=== PATIENT | male | born 1950 | race Hispanic/Latino ===

== ENCOUNTER 2020-01-19 10:23 | Emergency (ER) | payer SELFPAY ==
[~2020-01-19] VITALS: Ht 172.7 cm; Wt 81.6 kg
[2020-01-19 11:25] LABS: BASOPHILS # (AUTO) 0.1 (0.0-0.1); BASOPHILS % 0.8 % (0.0-1.0); EOSINOPHILS # (AUTO) 0.2 (0.0-0.4); EOSINOPHILS % 1.9 % (0.0-6.0); HEMATOCRIT 38.9 % (38.2-49.6); HEMOGLOBIN 13.4 g/dL (14.0-18.0); LYMPHOCYTES # (AUTO) 2.5 (1.0-3.2); LYMPHOCYTES % 31.8 % (18.0-39.1); MEAN CORPUSCULAR HEMOGLOBIN 32.5 pg (28-32); MEAN CORPUSCULAR HGB CONC 34.4 g/dL (31-35); MEAN CORPUSCULAR VOLUME 94.4 fL (81-99); MONOCYTES # (AUTO) 0.6 (0.2-0.8); NEUTROPHILS # (AUTO) 4.5 (2.1-6.9); NEUTROPHILS % 57.4 % (38.7-80.0); PLATELET COUNT 239 x10e3/uL (140-360); RED BLOOD COUNT 4.12 x10e6/uL (4.3-5.7); RED CELL DISTRIBUTION WIDTH 12.9 % (11.7-14.4)
[2020-01-19 11:43] LABS: ALANINE AMINOTRANSFERASE 14 IU/L (0-55); ALBUMIN/GLOBULIN RATIO 1.1 (0.8-2.0); ALKALINE PHOSPHATASE 112 IU/L (40-150); BLOOD UREA NITROGEN 20 mg/dL (7-26); BUN/CREATININE RATIO 19 (6-25); CALCIUM 9.3 mg/dL (8.4-10.2); CARBON DIOXIDE 22 mmol/L (22-29); CHLORIDE 108 mmol/L (98-107); CREATININE, SERUM 1.08 mg/dL (0.72-1.25); EST GLOMERULAR FILTRATION RATE > 60 ML/MIN (60-); GLUCOSE 117 mg/dL (74-118); SODIUM 140 mmol/L (136-145)
--- NOTE | 2020-01-19 12:10 | Diagnostic Imaging Report ---
Exam: Testicular ultrasound. Clinical History: Testicular swelling and pain Findings: Sonographic evaluation of the testicles. Both testes are normal in echogenicity and size without intratesticular mass. Normal symmetric bilateral blood flow without evidence of testicular torsion. Right: The right testicle measures 5.4 x 2.1 x 2.9 cm and appears unremarkable. The right epididymis measures 1.1 x 0.5 x 0.7 cm and appears unremarkable. Large right hydrocele. No varicocele. Left: The left testicle measures 5.0 x 2.3 x 2.6 cm and appears unremarkable. The left epididymis measures 1.1 x 0.9 x 0.9 cm and appears unremarkable. Trace left hydrocele. No varicocele. Impression: No testicular torsion or intratesticular mass. Large right hydrocele. Trace left hydrocele. Signed by: Ricky Avila MD on 01/19/2020 12:07 PM
--- NOTE | 2020-01-19 12:24 | Diagnostic Imaging Report ---
EXAM: CT Abdomen and Pelvis WITH intravenous contrast INDICATION: Testicular pain COMPARISON: Testicular ultrasound of earlier the same day TECHNIQUE: Abdomen and pelvis were scanned utilizing a multidetector helical scanner from the lung base to the pubic symphysis after administration of IV contrast. Coronal and sagittal reformations were obtained. Routine protocol was performed. Scan was performed during portal venous phase. IV CONTRAST: 100mL of Isovue 370 ORAL CONTRAST: Water RADIATION DOSE: Total DLP: 377 mGy*cm Dose modulation, iterative reconstruction, and/or weight based adjustment of the mA/kV was utilized to reduce the radiation dose to as low as reasonably achievable. FINDINGS: LOWER THORAX: Normal. HEPATOBILIARY: Diffuse hepatic steatosis. No focal liver lesion. No biliary ductal dilation. Unremarkable gallbladder. SPLEEN: No splenomegaly. PANCREAS: No focal masses or ductal dilatation. ADRENALS: No adrenal nodules. KIDNEYS/URETERS: No hydronephrosis, stones, or solid mass lesions. PELVIC ORGANS/BLADDER: Mild prostatomegaly with coarse internal calcifications. Unremarkable bladder. Large right hydrocele. PERITONEUM / RETROPERITONEUM: No free air or fluid. LYMPH NODES: No lymphadenopathy. VESSELS: Scattered atherosclerotic calcifications of the nonaneurysmal abdominal aorta and major branches. GI TRACT: No distention or wall thickening. BONES AND SOFT TISSUES: Unremarkable. IMPRESSION: Large right hydrocele, more completely evaluated on the testicular ultrasound of earlier the same day. Diffuse hepatic steatosis. Signed by: Ricky Avila MD on 01/19/2020 12:21 PM
[2020-01-19] MEDS ORDERED: SODIUM CHLORIDE 0.9% 50ML 50 ML ONE (12:39)
[2020-01-19] MEDS ORDERED: IOPAMIDOL 370 MG/ML 200 ML INFUS..BTL INJ ONE (12:39)
[2020-01-19 13:02] LABS: CLARITY,URINE CLEAR (CLEAR); COLOR,URINE YELLOW (YELLOW)
--- NOTE | 2020-01-19 13:02 | Emergency Department Note ---
History of Present Illnes History of Present Illness Chief Complaint: Genitourinary History of Present Illness This is a 69 year old male arrives to the ED with complaints of scrotal pain and swelling. Patient states he is scheduled for a hydrocele repair and evacuation on January 24 but he could not tolerate the pain which prompted him to come to the emergency department today.. Historian: Patient Arrival Mode: Car Onset (how long ago): day(s) Severity: mild Onset quality: gradual Duration (how long): day(s) Timing of current episode: intermittent Progression: waxing and waning Chronicity: chronic Relieving factors: none Past Medical/Family History Physician Review I have reviewed the patient's past medical and family history. Any updates have been documented here. Past Medical History Recent Fever: No Clinical Suspicion of Infectio: No New/Unexplained Change in Ment: No Past Medical History: Hypertension, Diabetes, Hyperlipedemia Past Surgical History: None Social History Smoking Cessation: Never Smoker Counseling Performed: No Alcohol Use: None Any Illegal Drug Use: No Other Any Pre-Existing Lines (PICC,: No Review of Systems Review of Systems Constitutional: Reports no symptoms EENTM: Reports no symptoms Cardiovascular: Reports no symptoms Respiratory: Reports no symptoms Gastrointestinal: Reports no symptoms Genitourinary: Reports as per HPI Musculoskeletal: Reports no symptoms Integumentary: Reports no symptoms Neurological: Reports no symptoms Psychological: Reports no symptoms Endocrine: Reports no symptoms Hematological/Lymphatic: Reports no symptoms Physical Exam Related Data Allergies: Coded Allergies: No Known Allergies (Unverified , 01/19/20) Triage Vital Signs Vital Signs Date Time Temp Pulse Resp B/P (MAP) Pulse Ox O2 Delivery O2 Flow Rate FiO2 01/19/20 10:54 98.7 49 20 121/81 100 Room Air Vital signs reviewed: Yes Physical Exam CONSTITUTIONAL Constitutional: Present well-developed, Present well-nourished HENT HENT: Present normocephalic, Present atraumatic, Present oropharynx clear/moist, Present nose normal HENT L/R: Present left ext ear normal, Present right ext ear normal EYES Eyes: Reports PERRL, Reports conjunctivae normal NECK Neck: Present ROM normal PULMONARY Pulmonary: Present effort normal, Present breath sounds normal CARDIOVASCULAR Cardiovascular: Present regular rhythm, Present heart sounds normal, Present capillary refill normal, Present normal rate GASTROINTESTINAL Abdominal: Present soft, Present nontender, Present bowel sounds normal GENITOURINARY Genitourinary: Present other (marked scrotal swelling) SKIN Skin: Present warm, Present dry MUSCULOSKELETAL Musculoskeletal: Present ROM normal NEUROLOGICAL Neurological: Present alert, Present oriented x 3, Present no gross motor or sensory deficits PSYCHOLOGICAL Psychological: Present mood/affect normal, Present judgement normal Results Laboratory Result Diagram: 01/19/20 1116 01/19/20 1116 Laboratory Laboratory Tests Test 01/19/20 12:00 01/19/20 11:16 White Blood Count 7.89 x10e3/uL (4.8-10.8) Red Blood Count 4.12 x10e6/uL (4.3-5.7) Hemoglobin 13.4 g/dL (14.0-18.0) Hematocrit 38.9 % (38.2-49.6) Mean Corpuscular Volume 94.4 fL (81-99) Mean Corpuscular Hemoglobin 32.5 pg (28-32) Mean Corpuscular Hemoglobin Concent 34.4 g/dL (31-35) Red Cell Distribution Width 12.9 % (11.7-14.4) Platelet Count 239 x10e3/uL (140-360) Neutrophils (%) (Auto) 57.4 % (38.7-80.0) Lymphocytes (%) (Auto) 31.8 % (18.0-39.1) Monocytes (%) (Auto) 8.0 % (4.4-11.3) Eosinophils (%) (Auto) 1.9 % (0.0-6.0) Basophils (%) (Auto) 0.8 % (0.0-1.0) Neutrophils # (Auto) 4.5 (2.1-6.9) Lymphocytes # (Auto) 2.5 (1.0-3.2) Monocytes # (Auto) 0.6 (0.2-0.8) Eosinophils # (Auto) 0.2 (0.0-0.4) Basophils # (Auto) 0.1 (0.0-0.1) Absolute Immature Granulocyte (auto 0.01 x10e3/uL (0-0.1) Sodium Level 140 mmol/L (136-145) Potassium Level 4.0 mmol/L (3.5-5.1) Chloride Level 108 mmol/L (98-107) Carbon Dioxide Level 22 mmol/L (22-29) Anion Gap 14.0 mmol/L (8-16) Blood Urea Nitrogen 20 mg/dL (7-26) Creatinine 1.08 mg/dL (0.72-1.25) Estimat Glomerular Filtration Rate > 60 ML/MIN (60-) BUN/Creatinine Ratio 19 (6-25) Glucose Level 117 mg/dL (74-118) Calcium Level 9.3 mg/dL (8.4-10.2) Total Bilirubin 0.4 mg/dL (0.2-1.2) Aspartate Amino Transf (AST/SGOT) 16 IU/L (5-34) Alanine Aminotransferase (ALT/SGPT) 14 IU/L (0-55) Alkaline Phosphatase 112 IU/L (40-150) Total Protein 7.6 g/dL (6.5-8.1) Albumin 4.0 g/dL (3.5-5.0) Globulin 3.6 g/dL (2.3-3.5) Albumin/Globulin Ratio 1.1 (0.8-2.0) Lab results reviewed: Yes Imaging Imaging results reviewed: Yes Impressions IMPRESSION: Large right hydrocele, more completely evaluated on the testicular ultrasound of earlier the same day. Diffuse hepatic steatosis. Signed by: Ricky Avila MD on 01/19/2020 12:21 PM Assessment & Plan Medical Decision Making MDM 69-year-old male arrives to the ED with complaints of scrotal swelling and pain. Patient has a scheduled hydrocele evacuation on January 24. Patient's pain was well-controlled the ED. No concerns of torsion or other acute emergency at this time. Spoke to Dr. Medellin at length who believes patient can be discharged home at this time and follow up with his appointment on January 24. Assessment & Plan Final Impression: (1) Hydrocele Depart Disposition: HOME, SELF-CARE Last Vital Signs Date Time Temp Pulse Resp B/P (MAP) Pulse Ox O2 Delivery O2 Flow Rate FiO2 01/19/20 10:54 98.7 49 20 121/81 100 Room Air Home Meds Active Scripts Tramadol Hcl (ULTRAM) 50 Mg Tablet, 50 MG PO Q6HR PRN for Mild Pain (1-3) or Fever>100.8, #14 TAB Prov:CYNTHIA CANADA, 01/19/20 Medications in the ED Sodium Chloride 50 ml @ ud STK-MED ONCE .ROUTE ; Start 01/19/20 at 12:39; Stop 01/19/20 at 12:33; Status DC Iopamidol 74,000 mg STK-MED ONCE INJ ; Start 01/19/20 at 12:39; Stop 01/19/20 at 12:33; Status DC CYNTHIA CANADA DO Jan 19, 2020 13:03
[2020-01-19 13:03] LABS: LEUKOCYTE ESTERASE ,URINE NEGATIVE (NEGATIVE); NITRITE,URINE NEGATIVE (NEGATIVE); PROTEIN,URINE DIPSTICK NEGATIVE (NEGATIVE)
[2020-01-19 13:04] LABS: BILIRUBIN,URINE NEGATIVE (NEGATIVE); KETONES,URINE NEGATIVE (NEGATIVE); URINE UROBILINOGEN 0.2 mg/dL (0.2 - 1)
[2020-01-19 13:05] LABS: BACTERIA,URINE RARE /HPF; EPITHELIAL CELLS,URINE FEW /LPF; RBC,URINE 0-5 /HPF (0-5); WBC,URINE (MAN) 0-5 /HPF (0-5)
[2020-01-19] MEDS ORDERED: ULTRAM50 MG PO (13:15)
[2020-01-20] MEDS ORDERED: METFORMIN HCL500 MG PO (14:16)
[2020-01-20] MEDS ORDERED: ATORVASTATIN CA10 MG PO (14:16)
[2020-01-20] MEDS ORDERED: LISINOPRIL5 MG PO (14:16)
== END 2020-01-19 14:00 | disposition home or self-care (01) ==
LOC: ER 10:55
DX: N50.82 Scrotal pain (principal); I10 Essential (primary) hypertension; E11.9 Type 2 diabetes mellitus without complications; E78.5 Hyperlipidemia, unspecified
CPT/HCPCS: 36415; 74177; 76870; 80053; 81001; 85025; 93976; 99284; Q9967

== ENCOUNTER → 2020-01-25 | Day surgery (SDC) | payer MEDICARE, OTHER ==
[~2020-01-25] MED LIST: ATORVASTATIN CA10 MG PO; ATORVASTATIN CA40 MG; BACTRIM DS TAB1 EACH PO; BUPIVACAINE HCL 0.5% INJ 30 ML VIAL INJ ONE; CEFAZOLIN SOD 1 GM/NS 50ML 50 ML IV ONE; DEXAMETHASONE SOD PHOS INJ 4 MG/ML VIAL ONE; DOXYCYCLINE MO100 MG; EPHEDRINE SULFATE INJ 50 MG/ML VIAL ONE; FENTANYL CITRATE/PF 100MCG/2 ML INJ ONE; KETOROLAC TROMETHAMINE 30 MG/ML VIAL ONE; LIDOCAINE HCL 2% LOCAL INJ 5 ML SDV VIAL INJ ONE; LISINOPRIL5 MG PO; METFORMIN HCL500 MG PO; METOCLOPRAMIDE HCL 10 MG/2ML VIAL ONE; MIDAZOLAM HCL 2 MG/2 ML VIAL ONE; ONDANSETRON HCL INJ 2MG/ML 2ML 2 MG/ML VIAL ONE; PROPOFOL IV EMULSION 10 MG/ML 20 ML VIAL ONE; SEVOFLURANE INHAL SOLN 250 ML PEN BTL ONE; SULFAMETHOXAZOLE; TRIAMCINOLONE A15 G3; TRIMETHOPRIM; TYLENOL # 31 EA; ULTRAM50 MG PO
[2020-01-25 09:44] LABS: BASOPHILS # (AUTO) 0.1 (0.0-0.1); BASOPHILS % 0.8 % (0.0-1.0); EOSINOPHILS # (AUTO) 0.2 (0.0-0.4); EOSINOPHILS % 1.6 % (0.0-6.0); HEMATOCRIT 39.2 % (38.2-49.6); HEMOGLOBIN 13.6 g/dL (14.0-18.0); LYMPHOCYTES # (AUTO) 2.6 (1.0-3.2); LYMPHOCYTES % 28.1 % (18.0-39.1); MEAN CORPUSCULAR HEMOGLOBIN 32.8 pg (28-32); MEAN CORPUSCULAR HGB CONC 34.7 g/dL (31-35); MEAN CORPUSCULAR VOLUME 94.5 fL (81-99); MONOCYTES # (AUTO) 0.7 (0.2-0.8); MONOCYTES % 7.1 % (4.4-11.3); NEUTROPHILS # (AUTO) 5.7 (2.1-6.9); PLATELET COUNT 259 x10e3/uL (140-360); RED BLOOD COUNT 4.15 x10e6/uL (4.3-5.7); RED CELL DISTRIBUTION WIDTH 12.9 % (11.7-14.4)
[2020-01-25 10:20] LABS: ANION GAP 15.3 mmol/L (8-16); BLOOD UREA NITROGEN 23 mg/dL (7-26); BUN/CREATININE RATIO 20 (6-25); CARBON DIOXIDE 22 mmol/L (22-29); CHLORIDE 107 mmol/L (98-107); CREATININE, SERUM 1.17 mg/dL (0.72-1.25); EST GLOMERULAR FILTRATION RATE > 60 ML/MIN (60-); GLUCOSE 133 mg/dL (74-118); POTASSIUM 4.3 mmol/L (3.5-5.1); SODIUM 140 mmol/L (136-145)
[2020-01-25 12:15] VITALS: BP 140/77
== END | disposition home or self-care (01) ==
LOC: OR 08:35
PROVIDERS: ATTEND Urology
DX: N43.3 Hydrocele, unspecified (principal); N43.40 Spermatocele of epididymis, unspecified; R81 Glycosuria; R80.9 Proteinuria, unspecified; R35.1 Nocturia; R39.12 Poor urinary stream; N47.6 Balanoposthitis; N45.3 Epididymo-orchitis; I10 Essential (primary) hypertension; E11.9 Type 2 diabetes mellitus without complications; R00.1 Bradycardia, unspecified; Z01.810 Encounter for preprocedural cardiovascular examination; Z01.812 Encounter for preprocedural laboratory examination; Z01.818 Encounter for other preprocedural examination; Z11.59 Encounter for screening for other viral diseases; Z79.84 Long term (current) use of oral hypoglycemic drugs
CPT/HCPCS: 36415; 55040; 71046; 80048; 85025; 88304; 93005; J0690; J1100; J1885; J2001; J2250; J2405; J2704; J2765; J3010; U0002

== ENCOUNTER 2020-02-03 16:07 | Inpatient (IN) | payer MEDICARE, OTHER ==
[~2020-02-03] VITALS: Ht 172.7 cm; Wt 81.6 kg
[~2020-02-03 16:07] MED LIST changes: -ATORVASTATIN CA40 MG; -BACTRIM DS TAB1 EACH PO; -BUPIVACAINE HCL 0.5% INJ 30 ML VIAL INJ ONE; -CEFAZOLIN SOD 1 GM/NS 50ML 50 ML IV ONE; -DEXAMETHASONE SOD PHOS INJ 4 MG/ML VIAL ONE; -DOXYCYCLINE MO100 MG; -EPHEDRINE SULFATE INJ 50 MG/ML VIAL ONE; -FENTANYL CITRATE/PF 100MCG/2 ML INJ ONE; -KETOROLAC TROMETHAMINE 30 MG/ML VIAL ONE; -LIDOCAINE HCL 2% LOCAL INJ 5 ML SDV VIAL INJ ONE; -METOCLOPRAMIDE HCL 10 MG/2ML VIAL ONE; -MIDAZOLAM HCL 2 MG/2 ML VIAL ONE; -ONDANSETRON HCL INJ 2MG/ML 2ML 2 MG/ML VIAL ONE; -PROPOFOL IV EMULSION 10 MG/ML 20 ML VIAL ONE; -SEVOFLURANE INHAL SOLN 250 ML PEN BTL ONE; -SULFAMETHOXAZOLE; -TRIAMCINOLONE A15 G3; -TRIMETHOPRIM; -TYLENOL # 31 EA
--- NOTE | 2020-02-03 16:20 | NUR ---
Pt given cup for ua. md to room for pt jagdish. states need for "gender specific chaparone, I'll get Earl." Earl to room for md khan.
[2020-02-03] MEDS ORDERED: SODIUM CHLORIDE 0.9% 1000ML 1,000 ML IV STA (16:42)
[2020-02-03] MEDS ORDERED: VANCOMYCIN 1GM/NS 250 ML 250 ML IV STA (16:42)
--- NOTE | 2020-02-03 16:43 | NUR ---
Vipul rodríguez MD for evaluation of patient's groin. Patient noted to have a warm and swollen scrotum more significant on the right than the left. Surgical sutures noted to right side of scrotum and old SHERRIE drain site noted with no drain present. It was explained to the patient by the ER MD that there is a concern for infection and the plan to obtain a CT scan was discussed and agreed upon. No open sores or necrosis noted at time of evaluation.
--- NOTE | 2020-02-03 16:50 | NUR ---
states pt will be a septic work up.
--- NOTE | 2020-02-03 17:02 | NUR ---
med not available, talked to [facility] Pharmacist.
[2020-02-03] MEDS: CEFAZOLIN SOD 1 GM/NS 50ML 50 ML IV ONE ×2 (17:03→18:55)
[2020-02-03 17:06] LABS: BASOPHILS # (AUTO) 0.1 (0.0-0.1); BASOPHILS % 0.7 % (0.0-1.0); EOSINOPHILS # (AUTO) 0.2 (0.0-0.4); HEMATOCRIT 38.6 % (38.2-49.6); HEMOGLOBIN 13.2 g/dL (14.0-18.0); LYMPHOCYTES # (AUTO) 2.7 (1.0-3.2); LYMPHOCYTES % 24.4 % (18.0-39.1); MEAN CORPUSCULAR HEMOGLOBIN 32.4 pg (28-32); MEAN CORPUSCULAR HGB CONC 34.2 g/dL (31-35); MEAN CORPUSCULAR VOLUME 94.6 fL (81-99); MONOCYTES # (AUTO) 0.8 (0.2-0.8); MONOCYTES % 7.5 % (4.4-11.3); NEUTROPHILS # (AUTO) 7.3 (2.1-6.9); PLATELET COUNT 312 x10e3/uL (140-360); RED BLOOD COUNT 4.08 x10e6/uL (4.3-5.7); RED CELL DISTRIBUTION WIDTH 12.2 % (11.7-14.4)
--- NOTE | 2020-02-03 17:14 | Emergency Department Note ---
History of Present Illnes History of Present Illness Chief Complaint: Genitourinary History of Present Illness This is a 69 year old male arrives to the ED postop from a hydrocele repair on January 24. Patient has right testicular pain, patient states he had a drain in his catheter back spontaneous to follow off a few days ago. Chief Complaint Comment PATIENT IN FROM HOME WITH COMPLAINTS OF RIGHT TESTICULAR PAIN; STATES HAD A HYDROCELE REPAIR ON 01/25/2020, BUT NEVER FOLLOWED UP. PATIENT RATED PAIN 6/10. PATIENT ALERT AND ORIENTED, RESP EVEN AND NONLABORED, APPEARS IN NO DISTRESS, AMBULATORY WITHOUT ASSISTANCE Historian: Patient Arrival Mode: Car Onset (how long ago): day(s) Severity: mild Duration (how long): day(s) Progression: worsening Chronicity: new Context: Reports recent surgery Exacerbating factors: none Past Medical/Family History Physician Review I have reviewed the patient's past medical and family history. Any updates have been documented here. Past Medical History Recent Fever: No Clinical Suspicion of Infectio: No New/Unexplained Change in Ment: No Past Medical History: Hypertension, Diabetes, Hyperlipedemia Past Surgical History: None Other Surgery: RIGHT TESTICULAR SURGERY Social History Smoking Cessation: Unknown if ever smoked Counseling Performed: No Alcohol Use: None Any Illegal Drug Use: No Other Any Pre-Existing Lines (PICC,: No Review of Systems Review of Systems Constitutional: Reports no symptoms EENTM: Reports no symptoms Cardiovascular: Reports no symptoms Respiratory: Reports no symptoms Gastrointestinal: Reports no symptoms Genitourinary: Reports as per HPI Musculoskeletal: Reports no symptoms Integumentary: Reports no symptoms Neurological: Reports no symptoms Psychological: Reports no symptoms Endocrine: Reports no symptoms Hematological/Lymphatic: Reports no symptoms Physical Exam Related Data Allergies: Coded Allergies: No Known Allergies (Unverified , 01/19/20) Triage Vital Signs Vital Signs Date Time Temp Pulse Resp B/P (MAP) Pulse Ox O2 Delivery O2 Flow Rate FiO2 02/03/20 16:07 98.7 63 16 145/83 100 Room Air Vital signs reviewed: Yes Physical Exam CONSTITUTIONAL Constitutional: Present well-developed, Present well-nourished HENT HENT: Present normocephalic, Present atraumatic, Present oropharynx clear/moist, Present nose normal HENT L/R: Present left ext ear normal, Present right ext ear normal EYES Eyes: Reports PERRL, Reports conjunctivae normal NECK Neck: Present ROM normal PULMONARY Pulmonary: Present effort normal, Present breath sounds normal CARDIOVASCULAR Cardiovascular: Present regular rhythm, Present heart sounds normal, Present capillary refill normal, Present normal rate GASTROINTESTINAL Abdominal: Present soft, Present nontender, Present bowel sounds normal GENITOURINARY Genitourinary: Present other (enlarged right testicle noted, sutures still in place, no drainage from suture site, however, marked swelling and erythema noted over right testicle, diffuse superimposed cellulitis noted over bilateral testicles) SKIN Skin: Present warm, Present dry MUSCULOSKELETAL Musculoskeletal: Present ROM normal NEUROLOGICAL Neurological: Present alert, Present oriented x 3, Present no gross motor or sensory deficits PSYCHOLOGICAL Psychological: Present mood/affect normal, Present judgement normal Results Laboratory Laboratory Laboratory Tests Test 02/03/20 16:50 Lab results reviewed: Yes Imaging Imaging results reviewed: Yes Impressions IMPRESSION: 1. Heterogeneity of the right scrotum with surrounding soft tissue edema, better visualized on same day scrotal ultrasound. This may represent postoperative changes. However, urology follow-up is recommended to further evaluate these findings. 2. No acute abdominopelvic abnormality identified. 3. Hepatic steatosis. Signed by: Eladia Russell MD on 02/03/2020 6:37 PM Assessment & Plan Medical Decision Making MDM 69-year-old postop male arrives to the ED with right testicular pain, swelling and erythema. Concerns of cellulitis and acute infection postop. Patient's urologist Dr. Medellin contacted at [phone], patient is pending lab work and imaging. Patient empirically covered with broad-spectrum antibiotics. Patient will likely require hospital admission. Concerns of impending sepsis, blood cultures and lactic acid obtained prior to broad-spectrum antibiotics. Time: 1645 Case signed out to Dr. Jones to follow-up lab work and imaging and place admission orders. Assessment & Plan Final Impression: (1) Cellulitis of scrotum Depart Disposition: ADMITTED Last Vital Signs Date Time Temp Pulse Resp B/P (MAP) Pulse Ox O2 Delivery O2 Flow Rate FiO2 02/03/20 16:07 98.7 63 16 145/83 100 Room Air Home Meds Active Scripts Tramadol Hcl (ULTRAM) 50 Mg Tablet, 50 MG PO Q6HR PRN for Mild Pain (1-3) or Fever>100.8, #14 TAB Prov:CYNTHIA CANA[place], 01/19/20 Reported Medications Atorvastatin Calcium (ATORVASTATIN CALCIUM) 40 Mg Tablet 02/03/20 Triamcinolone (TRIAMCINOLONE ACETONIDE) 15 Gm Oint 02/03/20 [Sulfameth/Tr] No Conflict Check 02/03/20 Acetaminophen/Codeine* (TYLENOL # 3*) 1 Ea Tab 02/03/20 Metformin Hcl (METFORMIN HCL) 500 Mg Tablet, PO BID, #60 TAB 01/20/20 Lisinopril (LISINOPRIL) 5 Mg Tablet, PO BID, #60 TAB 01/20/20 Atorvastatin Calcium (ATORVASTATIN CALCIUM) 10 Mg Tablet, PO 2100, #30 TAB 01/20/20 Medications in the ED Sodium Chloride 1,000 ml @ 0 mls/hr Q0M STAT IV Last administered on 02/03/20at 17:01; Admin Dose 1,000 MLS/HR; Start 02/03/20 at 16:42; Stop 02/03/20 at 16:45; Status DC Vancomycin HCl 250 ml @ 166.67 mls/ hr NOW STAT IV Last administered on 02/03/20at 17:01; Admin Dose 166.67 MLS/HR; Start 02/03/20 at 16:42; Stop 02/03/20 at 18:11 Cefazolin Sodium 50 ml @ 100 mls/hr ONCE ONCE IV ; Start 02/03/20 at 16:45; Stop 02/03/20 at 17:14 CYNTHIA CANADA DO Feb 03, 2020 17:14
--- OUTSIDE RECORDS SUMMARY | 2020-02-03 17:22 | XMS REPORT | Clinical Summary ---
Author Author [facility] Organization [facility] Address Unknown Phone Unavailable Care Team Providers Care Metal Drilling Machine Operator Name Role Phone Caren Hernandez MD PCP Hiram Brown ResidentMD [phone] Allergies No Known Allergies Medications End Date Status Medication Sig Dispensed Refills Start Date Active Miscellaneous Medical by 1 Each 0 06/25 Supply (BLOOD PRESSURE Misc.(Non-Gorge 7 CUFF) MiscIndications: g; Combo Essential hypertension Route) route. Active blood glucose test 2 times 50 Each 3 03/ 01 stripsIndications: Type 2 weekly Use 2 8 diabetes mellitus without times weekly complication, without (once per day long-term current use of on Thu,) insulin to test blood sugar. Active blood glucose (PRECISION Use 2 times 50 Each 6 0 XTRA TEST STRIPS) test weekly (once 8 stripsIndications: Type 2 per day on diabetes mellitus without Thu,) to complication, without test blood long-term current use of sugar. insulin Active lancets 28 Use 2 times 100 Each 6 gaugeIndications: Type 2 weekly as 8 diabetes mellitus without directed. complication, without long-term current use of insulin Active metFORMIN (GLUCOPHAGE) Take 1 tablet 90 tablet 3 0 500 mg tabletIndications: by mouth 0 Type 2 diabetes mellitus daily. without complication, without long-term current use of insulin Additional Information Patient taking differently: 1,000 mg Oral DAILY, Reported on 09/26/2019 1:50 PM Active nystatin (NYSTOP) 100,000 Apply to 15 g 0 unit/gram topical affected area 0 powderIndications: 4 times Janel infection daily. Additional Information Patient not taking. Reported on 09/26/2019 1:39 PM Active lisinopriL (PRINIVIL) 10 Take 1 tablet 90 tablet 3 mg tabletIndications: by mouth 0 Type 2 diabetes mellitus daily. without complication, without long-term current use of insulin, Essential hypertension Active atorvastatin (LIPITOR) 40 TAKE 1 TABLET 30 tablet 2 mg tabletIndications: BY MOUTH 0 Hypercholesteremia EVERY NIGHT AT BEDTIME 05/27/2020 Active tropicamide (MYDRIACYL) Instill 1 15 mL 0 0.5 % ophthalmic Drop in each 0 solutionIndications: Type eye once as 2 diabetes mellitus needed for up without complication, to 1 dose without long-term current (for poor use of insulin retina scan image). 11/24/2019 Discontinued (Therapy comple cristofer) blood glucose meter Use as 1 Kit 0 (PRECISION XTRA directed.. 8 GLUCOMETER)Indications: Type 2 diabetes mellitus without complication, without long-term current use of insulin 07/18/2019 Discontinued (Reorder) metFORMIN (GLUCOPHAGE) Take 1 tablet 90 tablet 3 0 500 mg tabletIndications: by mouth 9 Type 2 diabetes mellitus daily. without complication, without long-term current use of insulin 09/26/2019 Discontinued (Reorder) lisinopril (PRINIVIL) 10 Take 1 tablet 90 tablet 3 mg tabletIndications: by mouth 9 Type 2 diabetes mellitus daily. without complication, without long-term current use of insulin, Essential hypertension 07/18/2019 Discontinued (Alternate ther apy) simvastatin (ZOCOR) 20 mg Take 1 tablet 90 tablet 3 tabletIndications: Type 2 by mouth at 9 diabetes mellitus without bedtime complication, without nightly. long-term current use of insulin 01/18/2020 tropicamide (MYDRIACYL) Instill 1 15 mL 0 0.5 % ophthalmic Drop in each 0 solutionIndications: Type eye once as 2 diabetes mellitus needed for up without complication, to 1 dose without long-term current (for poor use of insulin retina scan image). Additional Information Patient not taking. Reported on 09/26/2019 1:39 PM 08/17/2019 atorvastatin (LIPITOR) 40 Take 1 tablet 30 tablet 2 mg tabletIndications: by mouth at 0 Type 2 diabetes mellitus bedtime without complication, nightly for without long-term current 30 days. use of insulin 11/26/2019 Discontinued atorvastatin (LIPITOR) 40 Take 40 mg by 0 mg tablet mouth at bedtime nightly. Active Problems Problem Noted Date Type 2 diabetes mellitus 06/19/2015 Resolved Problems Problem Noted Date Resolved Date Renal insufficiency 11/24/2019 11/29/2019 Newly diagnosed diabetes 06/19/2015 11/24/2019 Health maintenance examination 02/19/2015 020 Diabetes mellitus 02/19/2015 11/24/2019 Encounters Care Team Description Date Type Specialty Maribel Hinkle RN 12/05/2019 Nurse Triage Swelling of right testicle 12/01/2019 Ancillary Radiology Procedure Gildardo Melendez ResidentDO 12/01/2019 Orders Only Internal Medicine Rigoberto Gutierrez MD Green, La Tasha S Type 2 diabetes mellitus without complic ation, without long- term current use of insulin 11/29/2019 Nurse Only Ophthalmology Momo Minor, Rigoberto Grissom MD Louie, Brian J, ResidentDO Swelling of right testicle (Primary Dx); Type 2 diabetes mellitus without complication, without long-term current use of insulin; Screening for colorectal cancer 11/29/2019 Office Visit Internal Medicine Aicha Mathews MD Testicular asymmetry -per history (Prim neela Dx); Renal insufficiency; Type 2 diabetes mellitus without complication, without long-term current use of insulin 11/24/2019 Telephonic Family Practice Encounter Sara Lang MD Medications 11/19/2019 Refill Internal Medicine Thierno Hadley III, MD Elevated alkaline phosphatase level (Lotus josse Dx); Type 2 diabetes mellitus without complication, without long-term current use of insulin; Preventative health care; NO SHOW ENCOUNTER 11/16/2019 Telephonic Family Practice Encounter Jerrica Geller MD Screening cholesterol level; Type 2 diabetes mellitus without complication, without long-term current use of insulin; Confusion; Screening, lipid; Screening for thyroid disorder; Routine screening for STI (sexually transmitted infection) 09/27/2019 Lab Appointment Lab Brock Lopez, ResidentJerrica Sheldon MD Screening, lipid (Primary Dx); Type 2 diabetes mellitus without complication, without long-term current use of insulin; Essential hypertension; Screening for thyroid disorder; Routine screening for STI (sexually transmitted infection) 09/26/2019 Office Visit Internal Medicine Fe Pruett ResidentMD ERRONEOUS ENCOUNTER--DISREGARD (Primary Dx) 09/12/2019 Office Visit Internal Medicine Sara Lang MD Mallepally, Niharika R, ResidentMD Colon cancer screening (Primary Dx); Type 2 diabetes mellitus without complication, without long-term current use of insulin; Screening cholesterol level; Influenza vaccine needed; Need for shingles vaccine; Pneumococcal vaccine administered; Janel infection; Confusion 07/18/2019 Office Visit Internal Medicine after 02/02/2019 Immunizations Name Administration Dates Next Due Influenza Vaccine 05/28/2015, 02/27/2015 (Def erred: Vaccine Unavailable) Influenza, Injectable, 07/18/2019 Quadrivalent, Preservative Free Influenza, Vaccine 06/21/2018 <FLUCELVAX>(Preservative- Free) PCV 13 (Pnuemococcal 07/18/2019 Conjugated 13 Valent) PPV 23 Pneumococcal 02/27/2015 Polysaccaride Tdap Tetanus, diphtheria, 02/27/2015 acellular pertussis Vaccine Zoster Vaccine (Shingrix) 07/18/2019 Social History Date Tobacco Use Types Packs/Day Years Used Never Smoker Smokeless Tobacco: Current User Tobacco Cessation: Ready to Quit: No; Co unseling Given: No Drinks/Week oz/Week Comments Alcohol Use No Food Insecurity Answer Date Recorded Within the past 12 months, you worried that your Never amira e 06/21/2018 food would run out before you got money to buy more. Within the past 12 months, the food you bought Never true 06/21/2018 just didn't last and you didn't have mo emily to get more. Sex Assigned at Date Recorded Not on file Industry Job Start Date Occupation Not on file Not on file Not on file Travel End Travel History Travel Start No recent travel history available. Last Filed Vital Signs Reading Time Taken Comments Vital Sign 118/71 11/29/2019 8:33 AM CDT Blood Pressure 59 11/29/2019 8:33 AM CDT Pulse 37.2 C (99 F) 11/29/2019 8:33 AM CDT Temperature 18 11/29/2019 8:33 AM CDT Respiratory Rate - - Oxygen Saturation - - Inhaled Oxygen Concentration 74.9 kg (165 lb 3.2 oz) 11/29/2019 8:33 AM CDT Weight 167.6 cm (5' 6") 11/29/2019 8:33 AM CDT Height 26.66 11/29/2019 8:33 AM CDT Body Mass Index Plan of Treatment Health Maintenance Due Date Last Done Comments IMM Influenza Seasonal 02/23/2020 07/18/2019, Feb to July (>/= 19 yrs) 06/21/2018, 05/28/2015 DM Foot Exam (Yearly) 07/18/2020 07/18/2019, 02/12/2018, 09/24/2017, Additional history exists DM HGBA1C (Yearly) 09/26/2020 09/27/2019, 01/14/2019, 06/21/2018, Additional history exists DM Retinal Exam (Yearly) 11/28/2020 11/29/2019, 06/21/2018, 06/13/2017, Additional history exists Colorectal Cancer Scrn 12/05/2020 12/06/2019, Annual (FIT/FOBT) Age 48 07/08/2018, to 73 11/26/2016, Additional history exists IMM Pneumococcal Age 63 Completed 07/18/2019, and Up 02/27/2015 Procedures Comments Procedure Name Priority Date/Time Associated Diag nosis FECAL OCCULT BLOOD Routine 12/06/2019 Screening f or colorectal 9:26 AM CDT cancer U/S SCROTUM STAT 12/01/2019 Swelling of rig ht 12:17 PM CDT testicle DUPLEX DOPPLER ABD/PEL STAT 12/01/2019 Swellin g of right VASCULAR STUDY, COMPLETE 12:17 PM CDT testicle OPHTHALMOLOGY RETINAL Routine 11/29/2019 Type 2 d iabetes mellitus SCAN 9:55 AM CDT without complicatio n, without long-term current use of insulin URINE DRUG SCREEN Routine 09/27/2019 Confusion 10:40 AM CDT SYPHILIS SCREEN FOR Routine 09/27/2019 Routine sc reening for STI INFECTION 9:30 AM CDT (sexually transmitt ed infection) HEMOGLOBIN A1C Routine 09/27/2019 Type 2 diabetes mellitus 9:30 AM CDT without complication, without long-term current use of insulin COMPREHENSIVE METABOLIC Routine 09/27/2019 Type 2 diabetes mellitus PANEL 9:30 AM CDT without complicatio n, without long-term current use of insulin THYROID STIMULATING Routine 09/27/2019 Screening for thyroid HORMONE (TSH) 9:30 AM CDT disorder LIPID PROFILE Routine 09/27/2019 Screening, lipi d 9:30 AM CDT HIV AG/AB COMBO ROUTINE Routine 09/27/2019 Routin e screening for STI SCREENING 9:29 AM CDT (sexually transmitt ed infection) DIABETIC FOOT EXAM Routine 07/18/2019 Type 2 diab etes mellitus 3:01 PM DATA PROCESSING CONTROL CLERK without complication, without long-term current use of insulin after 02/02/2019 Results * Fecal Occult Blood (12/06/2019 9:26 AM CDT) Occult Blood Negative Negative [facility] Specimen Stool - Feces Performing Organization Address [facility]/State[facility] Ph one Number [facility] [address] [place] [address] * DUPLEX DOPPLER ABD/PEL VASCULAR STUDY, COMPLETE (12/01/2019 12:17 PM CDT) Specimen Impressions Performed At IMPRESSION: SMS 1. No evidence of testicular torsion. N o testicular mass. 2. Large right hydrocele resulting in d isplacement of the testicular capsule. This suggests the hydrocele is under tension. Dictated By: Zohreh Ahuja MD, 12/01/2019 1:03 PM I have reviewed the study and agree wit h the findings in this report. Signed By: Emma Pa, 12/01/2019 2: 10 PM Narrative Performed At EXAM: Scrotal Ultrasound with Duplex SMS INDICATION: right sided testicular s welling COMPARISON: None TECHNIQUE: Transverse and longitudinal images were obtained of the scrotum with grayscale imaging, color D oppler and spectral waveform analysis. FINDINGS: Right testis: Size: 4.3 x 2.6 x 2.7 cm. Echogenicity: Normal Morphology: The posterior capsule is displaced anteriorly Mass/Cysts: None Left testis: Size: 4.5 x 2.1 x 3.0 cm. Echogenicity: Normal Mass/Cysts: None Epididymis: Appearance: Normal in size withou t increased vascularity. Mass/Cysts: 1. 0.5 x 0.3 x 0.3 cm appendix epidid ymis 2. 0.5 5.4 x 0.4 cm cyst in the head of the left epididymis, representing epididymal cyst/spermatoce le. Extratesticular: Masses: None Hydrocele: Large right hydrocele. Small left hydrocele. Varicocele: None Doppler: Normal arterial flow to both testes and symmetrical flow on color Doppler evaluation is seen. No evidence of testicular torsion. Procedure Note Interface, Rad/Mammog In - 12/01/2019 2:15 PM CDT EXAM: Scrotal Ultrasound with Duplex INDICATION: right sided testicular swelling COMPARISON: None TECHNIQUE: Transverse and longitudinal images were obtained of the scrotum with grayscale imaging, color Doppler and spectral waveform analysis. FINDINGS: Right testis: Size: 4.3 x 2.6 x 2.7 cm. Echogenicity: Normal Morphology: The posterior capsule is displaced anteriorly Mass/Cysts: None Left testis: Size: 4.5 x 2.1 x 3.0 cm. Echogenicity: Normal Mass/Cysts: None Epididymis: Appearance: Normal in size without increased vascularity. Mass/Cysts: 1. 0.5 x 0.3 x 0.3 cm appendix epididym is 2. 0.5 5.4 x 0.4 cm cyst in the head of the left epididymis, representing epididymal cyst/spermatocele. Extratesticular: Masses: None Hydrocele: Large right hydrocele. Small left hydrocele. Varicocele: None Doppler: Normal arterial flow to both testes and symmetrical flow on color Doppler evaluation is seen. No evidence of testicular torsion. IMPRESSION IMPRESSION: 1. No evidence of testicular torsion. No testicular mass. 2. Large right hydrocele resulting in di splacement of the testicular capsule. This suggests the hydrocele is under tension. Dictated By: Zohreh Ahuja MD, 12/01/2019 1:03 PM I have reviewed the study and agree with the findings in this report. Signed By: Emma Pa, 12/01/2019 2:10 PM Performing Organization Address City/State/Zipcode Ph one Number SMS * U/S SCROTUM (12/01/2019 12:17 PM CDT) Specimen Impressions Performed At IMPRESSION: SMS 1. No evidence of testicular torsion. N o testicular mass. 2. Large right hydrocele resulting in d isplacement of the testicular capsule. This suggests the hydrocele is under tension. Dictated By: Zohreh Ahuja MD, 12/01/2019 1:03 PM I have reviewed the study and agree wit h the findings in this report. Signed By: Emma Pa, 12/01/2019 2: 10 PM Narrative Performed At EXAM: Scrotal Ultrasound with Duplex SMS INDICATION: right sided testicular s welling COMPARISON: None TECHNIQUE: Transverse and longitudinal images were obtained of the scrotum with grayscale imaging, color D oppler and spectral waveform analysis. FINDINGS: Right testis: Size: 4.3 x 2.6 x 2.7 cm. Echogenicity: Normal Morphology: The posterior capsule is displaced anteriorly Mass/Cysts: None Left testis: Size: 4.5 x 2.1 x 3.0 cm. Echogenicity: Normal Mass/Cysts: None Epididymis: Appearance: Normal in size withou t increased vascularity. Mass/Cysts: 1. 0.5 x 0.3 x 0.3 cm appendix epidid ymis 2. 0.5 5.4 x 0.4 cm cyst in the head of the left epididymis, representing epididymal cyst/spermatoce le. Extratesticular: Masses: None Hydrocele: Large right hydrocele. Small left hydrocele. Varicocele: None Doppler: Normal arterial flow to both testes and symmetrical flow on color Doppler evaluation is seen. No evidence of testicular torsion. Procedure Note Interface, Rad/Mammog In - 12/01/2019 2:15 PM CDT EXAM: Scrotal Ultrasound with Duplex INDICATION: right sided testicular swelling COMPARISON: None TECHNIQUE: Transverse and longitudinal images were obtained of the scrotum with grayscale imaging, color Doppler and spectral waveform analysis. FINDINGS: Right testis: Size: 4.3 x 2.6 x 2.7 cm. Echogenicity: Normal Morphology: The posterior capsule is displaced anteriorly Mass/Cysts: None Left testis: Size: 4.5 x 2.1 x 3.0 cm. Echogenicity: Normal Mass/Cysts: None Epididymis: Appearance: Normal in size without increased vascularity. Mass/Cysts: 1. 0.5 x 0.3 x 0.3 cm appendix epididym is 2. 0.5 5.4 x 0.4 cm cyst in the head of the left epididymis, representing epididymal cyst/spermatocele. Extratesticular: Masses: None Hydrocele: Large right hydrocele. Small left hydrocele. Varicocele: None Doppler: Normal arterial flow to both testes and symmetrical flow on color Doppler evaluation is seen. No evidence of testicular torsion. IMPRESSION IMPRESSION: 1. No evidence of testicular torsion. No testicular mass. 2. Large right hydrocele resulting in di splacement of the testicular capsule. This suggests the hydrocele is under tension. Dictated By: Zohreh Ahuja MD, 12/01/2019 1:03 PM I have reviewed the study and agree with the findings in this report. Signed By: Emma Pa, 12/01/2019 2:10 PM Performing Organization Address City/State/Zipcode Ph one Number SMS * OPHTHALMOLOGY RETINAL SCAN (11/29/2019 9:55 AM CDT) RETINAL NORMAL [facility] SCAN-FINAL RESULT Right Diabetic None [facility] Retinopathy Right Macular None [facility] Edema Right Other None [facility] Suspected Conditions Right Image Gradable Image [facility] Quality Left Diabetic None [facility] Retinopathy Left Macular None [facility] Edema Left Other None [facility] Suspected Conditions Left Image Gradable Image [facility] Quality Specimen Narrative Performed At Retinal Study Result for ramona LOYOLA 69 y/o, M (: , ) presented to [facility] on 11-29-2019 for a retinal imaging study of the left and right eyes. Based on the findings of the study, the following is recommended for EMILIANO GUTIÉRREZ Normal Scan: Please advise the patient to return for another scan in 1 year. Interpreting Provider's Comments: No comments provided Right eye findings: Normal Result. Ne gative for Diabetic Retinopathy. Left eye findings: Normal Result. Neg ative for Diabetic Retinopathy. This result was electronically signed Joseph Bella MD, , Taxonomy: [id number] on 11-29-2019 06:1 7:47 UTC time. NOTE: Any pathology noted on this kindra betic retinal evaluation should be confirmed by an appropriate ophthalmic examination. Performing Organization Address City/State/Zipcode Ph one Number IRIS * Urine Drug Screen (09/27/2019 10:40 AM CDT) Opiate, Ur Negative Negative [facility] Comment: [facility]ORAT[facility] Calibrated Standard: Morphine Positive if urine level > or = 300 ng/dL Amphetamine Negative Negative [facility] Comment: [facility] Calibrated Standard: D-Methamphetamine Positive if urine level > or = 1000 ng/mL Barbiturate Negative Negative [facility] Comment: [facility] Calibrated Standard: Secobarbital Positive if urine level is > or = 200 ng/mL Benzodiazepine Negative Negative [facility] Comment: LAB[facility] Calibrated Standard: Lormethazepam Positive if urine level is > or = 200 ng/mL Cocaine Negative Negative [facility] Comment: LAB[facility] Calibrated Standard: Benzoylecgonine Positive if urine level > or = 300 ng/dL PCP Negative Negative [facility] Comment: LAB[facility] Calibrated Standard: Phencyclidine Positive if urine level > or = 25 ng/dL Cannabinoid Negative Negative [facility] Comment: LAB[facility] Calibrated Standard: 11 nor-delta(9)-THC carboxylic acid Positive if urine level > or = 50 ng/mL Specimen Urine - Voided, urine Performing Organization Address [facility] one Number [facility] [address] [place] [address] * Syphilis Screen for Infection (09/27/2019 9:30 AM CDT) TPA Negative Negative, Equivocal [facility] Final Report Negative Negative [facility] Specimen Blood - Arm, left Performing Organization Address [facility] one Number [facility] [address] [place], [place] [id number] [phone] * Hemoglobin A1C (09/27/2019 9:30 AM CDT) Hemoglobin A1c 7.0 (H) 4.3 - 6.1 % [facility] Estimated 154 (H) 70 - 110 mg/dL [facility] Average Glucose LABORATORY Specimen Blood - Arm, left Performing Organization Address [facility] one Number [facility] [address] [place], [place] [id number] [phone] * Comprehensive Metabolic Panel (09/27/2019 9:30 AM CDT) Sodium 139 136 - 145 mmol/L [facility] Potassium 3.9 3.5 - 5.1 mmol/L [facility] Chloride 104 98 - 107 mmol/L [facility] CO2 27 21 - 31 mmol/L [facility] Glucose 161 (H) 70 - 110 mg/dL [facility] Calcium 9.8 8.6 - 10.3 mg/dL [facility] Urea Nitrogen 16.0 7.0 - 25.0 mg/dL [facility] Creatinine 1.1 0.7 - 1.3 mg/dL [facility] Alkaline 106 (H) 34 - 104 U/L [facility] Phosphatase LAB ALT 11 7 - 52 U/L [facility] AST 13 13 - 39 U/L [facility] Bilirubin, 1.0 0.2 - 1.2 mg/dL [facility] Total LAB Total Protein 7.6 6.0 - 8.3 g/dL [facility] GFR, Estimated 66 (L) >=90 mL/min/1.73 m2 [facility] LAB Albumin 4.4 4.2 - 5.5 g/dL [facility] Anion Gap 8 5 - 16 mmol/L [facility] Specimen Blood - Arm, left Performing Organization Address [facility] Ph one [place] [address] [facility] [address] [phone] * TSH (09/27/2019 9:30 AM CDT) [facility] TSH 1.61 0.45 - 5.33 uIU/mL [facility] Specimen Blood - Arm, left Performing Organization Address [facility] Ph one Number [facility] [address] [place] [address] * Lipid Profile (09/27/2019 9:30 AM CDT) [facility] Cholesterol 144.0 <=200.0 mg/dL [facility] Comment: LAB Desirable: < 200.0 mg/dL Borderline: 200 - 240 mg/dL High Risk: > 240 mg/dL Triglyceride 94 <150 mg/dL [facility] Comment: LAB Normal: < 150.0 mg/dL Borderline: 150-199 mg/dL High: 200-499 mg/dL Very High: >= 500 mg/dL HDL 30.0 See Reference Range [facility] Comment: Narrative. mg/dL LAB Increased CHD Risk: < 40.0 mg/dL Decreased CHD Risk: > 60 mg/dL LDL 95 <100 mg/dL [facility] Comment: LAB Optimal: < 100.0 mg/dL Near Optimal: 120-129 mg/dL Borderline: 130-159 mg/dL High: 160-189 mg/dL Very High: >=190 mg/dL Patient Yes [facility] Fasting? LAB Specimen Blood - Arm, left Performing Organization Address City/[facility] Ph one [place] [address] [facility] [address] [place] [address] * HIV-1/HIV-2 Routine Screening (09/27/2019 9:29 AM CDT) HIV Ag/Ab Combo Negative Negative [facility] Specimen Blood - Arm, left Performing Organization Address [facility] Ph one Number [facility] [address] [place] [address] * DIABETIC FOOT EXAM (07/18/2019 3:01 PM DATA PROCESSING CONTROL CLERK) Narrative Performed At Fe Pruett ResidentRI 07/18/2019 3:40 PM Diabetic Foot Exam was performed at 06/26 3:40 PM. Right foot sensation is normal, right foot pulses are normal, right foot appearance is normal. Left foot sensation is nor mal, left foot pulses are normal, left foot appearance is normal. after 02/02/2019 Insurance Type Payer Benefit Subscriber ID Effective Phone Address Plan / Dates Group MEDICARE MEDICARE xxxxxxxxxxx 2013-P [id number] [place] [address] (Work)
--- OUTSIDE RECORDS SUMMARY | 2020-02-03 17:23 | XMS REPORT | Continuity of Care Document ---
Author Author [facility] t Organization [facility] Address 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 Role Phone NO, PCP PCP Unavailable HAMPEL, PETER Attphys Unavailable Deon CANADA AMBICA Attphys Unavailable Arin RN, F Seffner Attphys Unavailable Chago Erwin Attphys [phone] Chago Gutierrez MD Attphys Katherine Gama La Attphys Unavailable Mily Snyder, W Momo Attphys [phone] Bisi HILARIO, Aicha Attphys [phone] Velasquez Lang MD Attphys Jomar HLIARIO, Dawood Pa Attphys Duyen HILARIO, Mikayla Becerril Attphys John Snyder, Diego Gutiérrez Attphys [phone] Flynn Snyder, R Fe Attphys [phone] Payers Payer Name Policy Type Policy Number Effective Date Expiration Date S ource MEDICAREMEDICARE PART A & Bxxxxxxxxxxx1/ [id number] [address] xxxxxxxxxxx 2013 00:00:00 [facility] Problems Condition Name Condition Details Condition Category Status Onset Date Resolution Date Last Treatment Date Treating Clinician Comments Source Type 2 diabetes mellitus Type 2 diabetes mellitus Disease Acti ve 2015-06-19 00:00:00 [facility] Problem Condition Active [facility] Renal insufficiency Renal insufficiency Disease Resolved 2019-11 00:00:00 2019-11-29 00:00:00 2019-11-29 09:20:02 Andrew blakely History of Past Illness Condition Name Condition Details Condition Category Status Onset Date Resolution Date Last Treatment Date Treating Clinician Comments Source Newly diagnosed diabetes Newly diagnosed diabetes Disease Reso lved 2015-06-19 00:00:00 2019-11-24 00:00:00 2019-11-24 10:33:58 H arris [employer] Health maintenance examination Health maintenance examination Disea se Resolved 2015-02-19 00:00:00 2019-11-24 00:00:00 2019-11-24 10:34:03 [facility] Diabetes mellitus Diabetes mellitus Disease Resolved 2015-02-19 00:00:00 2019-11-24 00:00:00 2019-11-24 10:34:00 Andrew blakely Allergies, Adverse Reactions, Alerts Allergy Name Allergy Type Status Severity Reaction(s) Onset Date Inacti ve Date Treating Clinician Comments Source No Known Allergies DA Active U 2018-08-28 00:00:00 [facility] No Known Allergies DA Active U 2016-09-07 00:00:00 [facility] Social History Social Habit Start Date Stop Date Quantity Comments Source Sex Assigned At [facility] Alcohol intake 2019-11-29 00:00:00 2019-11-29 00:00:00 Current non-drinker of alcohol (finding) [facility] History SDOH Food Worry 2018-06-21 00:00:00 2018-06-21 00:00:00 1 [facility] History SDOH Food Scarcity 2018-06-21 00:00:00 2018-06-21 00:00:00 1 [facility] Smoking Status Start Date Stop Date Source Never smoker [facility] Medications Ordered Medication Name Filled Medication Name Start Date Stop Da te Current Medication? Ordering Clinician Indication Dosage Frequency Signature (SIG) Comments Components Source Tramadol Hcl (Ultram) 50 Mg TABLET Tramadol Hcl (Ultram) 50 Mg TABLET 2020-01-19 13:15:00 Yes 50 Every 6 Ho urs as needed for Mild Pain (1-3) Or Fever>100.8 [facility] tropicamide (MYDRIACYL) 0.5 % ophthalmic solution 2019-11-29 00:00:00 2020-05-27 23:59:00 Yes Type 2 diabetes jack itus without complication, without long-term current use of insulin 1[drp] Instill 1 Drop in each eye once as needed for up to 1 dose (for poor retina scan image). [employer] atorvastatin (LIPITOR) 40 mg tablet 2019-11-26 11:06:4 1 2019-11-26 00:00:00 No 40mg Take 40 mg by mouth at bedtime nightly. [facility] atorvastatin (LIPITOR) 40 mg tablet 2019-11-26 00:00:00 Yes Hypercholesteremia TAKE 1 TABLET BY MOUTH EVERY NIGHT AT B EDTIME [facility] [employer] lisinopriL (PRINIVIL) 10 mg tablet 2019-09-26 00:00:00 Yes Essential hypertension 10mg QD Take 1 tablet by mouth daily. [facility] metFORMIN (GLUCOPHAGE) 500 mg tablet 2019-07-18 00:00:00 Yes Type 2 diabetes mellitus without complication, without long-term current use of insulin 500mg QD Take 1 tablet by mouth daily. [facility] nystatin (NYSTOP) 100,000 unit/gram topical powder 2019-06 00:00:00 Yes Janel infection Apply to affected area 4 times d aily. [facility] tropicamide (MYDRIACYL) 0.5 % ophthalmic solution 2019-07-18 00:00:00 2020-01-18 23:59:00 No Type 2 diabetes jack itus without complication, without long-term current use of insulin 1[drp] Instill 1 Drop in each eye once as needed for up to 1 dose (for poor retina scan image). [employer] [facility] atorvastatin (LIPITOR) 40 mg tablet 2019-07-18 00:00:0 0 2019-08-17 23:59:00 No Type 2 diabetes mellitus wit hout complication, without long-term current use of insulin 40mg Take 1 tablet by mouth at bedtime nightly for 3 0 days. [facility] simvastatin (ZOCOR) 20 mg tablet 2019-01-14 00:00:00 2019-06 00:00:00 No Type 2 diabetes mellitus without complication, without long-term current use of insulin 20mg Take 1 tablet by mouth at bedtime nightly. [facility] lisinopril (PRINIVIL) 10 mg tablet 2018-06-21 00:00:00 202 00:00:00 No Essential hypertension 10mg QD Take 1 tablet by mouth ricardo y. [facility] metFORMIN (GLUCOPHAGE) 500 mg tablet 2018-06-21 00:00: 00 2019-07-18 00:00:00 No Type 2 diabetes mellitus wit hout complication, without long-term current use of insulin 500mg QD Take 1 tablet by mouth daily. [facility] blood glucose (PRECISION XTRA TEST STRIPS) test strips 2018-02-12 00:00:00 Yes Type 2 diabetes mellitus wit hout complication, without long-term current use of insulin Use 2 times weekly ( once per day on Thu,) to test blood sugar. [facility] lancets 28 gauge 2018-02-12 00:00:00 Yes Type 2 diabetes mellitus without complication, without long-term current use of insulin Use 2 times weekly as directed. [facility] blood glucose test strips 2017-07-27 00:00:00 Yes Type 2 diabetes mellitus without complication, without long-term current use of insulin 2 times weekly Use 2 times weekly (once per day on Thu,) to test blood sugar. [facility] blood glucose meter (PRECISION XTRA GLUCOMETER) 2017-06-12 00:00:00 2019-11-24 00:00:00 No Type 2 diabetes jack itus without complication, without long-term current use of insulin Use as directed.. [facility] Miscellaneous Medical Supply (BLOOD PRESSURE CUFF) Misc 2016-07-11 00:00:00 Yes Essential hypertension by [facility].(Non-Drug; Combo Route) route. [facility] Immunizations Ordered Immunization Name Filled Immunization Name Date Status Comments Source Influenza, Injectable, Quadrivalent, Preservative Free 2019-07-18 00:00:00 Completed [facility] Zoster Vaccine (Shingrix) 2019-07-18 00:00:00 Completed [facility] PCV 13 (Pnuemococcal Conjugated 13 Valent) 2019-07-18 00:0 0:00 Completed [facility] Influenza, Vaccine <FLUCELVAX>(Preservative-Free) 2018-06-21 00:00:00 Completed [facility] Influenza Vaccine 2015-05-28 00:00:00 Completed [facility] Tdap Tetanus, diphtheria, acellular pertussis Vaccine 2015-02-27 00:00:00 Completed [facility] PPV 23 Pneumococcal Polysaccaride 2015-02-27 00:00:00 Comp leted [facility] Vital Signs Vital Name Observation Time Observation Value Comments Source Weight 2020-01-19 10:54:00 180 [lb_av] [facility] BMI (Body Mass Index) 2020-01-19 10:54:00 27.4 kg/m2 [facility] Systolic blood pressure 2019-11-29 08:33:00 118 mm[Hg] [facility] Diastolic blood pressure 2019-11-29 08:33:00 71 mm[Hg] [facility] Heart rate 2019-11-29 08:33:00 59 /min [facility] Body temperature 2019-11-29 08:33:00 37.22 Carole Yeimy [facility] Respiratory rate 2019-11-29 08:33:00 18 /min Yeimy [facility] Body height 2019-11-29 08:33:00 167.6 cm [facility] Body weight 2019-11-29 08:33:00 74.934 kg [facility] BMI 2019-11-29 08:33:00 26.66 kg/m2 [facility] Procedures Procedure Date / Time Performed Performing Clinician [facility] e Computed tomography of abdomen and pelvis with contrast 00:00:00 [facility] Testicular ultrasound 2020-01-19 00:00:00 [facility] Dup-scan artl hoda abdl/pel/scrot&/RPR orgn lmt 2020-01-19 00:00: 00 [facility] FECAL OCCULT BLOOD 2019-12-06 09:26:00 Rigoberto Gutierrez [facility] DUPLEX DOPPLER ABD/PEL VASCULAR STUDY, COMPLETE 2019-12-01 1 2:17:33 Rigoberto Gutierrez [facility] U/S SCROTUM 2019-12-01 12:17:33 [facility]IN[facility] 2019-11-29 09:55:06 Rigoberto Gutierrez [facility] URINE DRUG SCREEN 2019-09-27 10:40:00 Fe Pruett [facility] LIPID PROFILE 2019-09-27 09:30:00 Brock Lopez [facility] THYROID STIMULATING HORMONE (TSH) 2019-09-27 09:30:00 Chago Lopez [facility] COMPREHENSIVE METABOLIC PANEL 2019-09-27 09:30:00 Trinity Lopez [facility] HEMOGLOBIN A1C 2019-09-27 09:30:00 Brock Lopez [facility] SYPHILIS SCREEN FOR INFECTION 2019-09-27 09:30:00 Trinity Lopez [facility] HIV AG/AB COMBO ROUTINE SCREENING 2019-09-27 09:29:00 Chago Lopez [facility] DIABETIC FOOT EXAM 2019-07-18 15:01:08 Fe Pruett [facility] Plan of Care Planned Activity Planned Date Details Comments Source Future Scheduled Test 2020-12-05 00:00:00 Screening for maria e gnant neoplasm of colon (procedure) [code = 869217944] [facility] Scheduled Test 2020-11-28 00:00:00 DM Retinal Exam (Y early) [code = DM Retinal Exam (Yearly)] [facility] Scheduled Test 2020-09-26 00:00:00 Hemoglobin A1c dara surement (procedure) [code = 58128940] [facility] Scheduled Test 2020-07-18 00:00:00 DM Foot Exam (Year ly) [code = DM Foot Exam (Yearly)] [facility] Scheduled Test 2020-02-23 00:00:00 IMM Influenza Seas onal Feb to July (>/= 19 yrs) [code = IMM Influenza Seasonal Oct to July (>/= 19 yrs)] [facility] Instructions [facility] Encounters Start Date/Time End Date/Time Encounter Type Admission Type [facility] Facility Care Department Encounter ID Source 2020-01-19 10:55:00 2020-01-19 14:00:00 Departed Emergency Room CYNTHIA CANADA [facility] [id number] [facility] 2019-12-29 00:00:00 2019-12-29 00:00:00 Outpatient [facility] [id number] [facility] 2019-12-29 00:00:00 2019-12-29 00:00:00 Outpatient [facility] [id number] [facility] 2019-12-20 00:00:00 2019-12-20 00:00:00 Outpatient [facility] [id number] [facility] 2019-12-06 09:16:43 2019-12-06 09:16:43 Outpatient [facility] [id number] [facility] 2019-12-01 11:29:46 2019-12-01 11:29:46 Outpatient [facility] [id number] [facility] 2019-11-29 09:48:34 2019-11-29 09:48:34 Outpatient [facility] [id number] [facility] 2019-11-29 08:36:28 2019-11-29 08:36:28 Outpatient [facility] [id number] [facility] 2019-11-24 07:52:58 2019-11-24 07:52:58 Outpatient [facility] [id number] [facility] 2019-11-18 00:00:00 2019-11-18 00:00:00 Outpatient [facility] [id number] [facility] 2019-11-16 07:33:40 2019-11-16 07:33:40 Outpatient [facility] [id number] [facility] 2019-09-27 09:19:42 2019-09-27 09:19:42 Outpatient [facility] [id number] [facility] 2019-09-27 00:00:00 2019-09-27 00:00:00 Outpatient [facility] [id number] [facility] 2019-09-27 00:00:00 2019-09-27 00:00:00 Outpatient [facility] [id number] [facility] 2019-09-27 00:00:00 2019-09-27 00:00:00 Outpatient [facility] [id number] [facility] 2019-09-26 07:03:29 2019-09-26 07:03:29 Outpatient [facility] [id number] [facility] 2019-09-12 06:49:38 2019-09-12 06:49:38 Outpatient [facility] [id number] [facility] 2019-09-12 00:00:00 2019-09-12 00:00:00 Outpatient [facility] [id number] [facility] 2019-07-18 14:42:56 2019-07-18 14:42:56 Outpatient [facility] [id number] [facility] 2019-07-18 00:00:00 2019-07-18 00:00:00 Outpatient [facility] [id number] [facility] 2019-07-08 00:00:00 2019-07-08 00:00:00 Outpatient [facility] [id number] [facility] 2019-06-27 00:00:00 2019-06-27 00:00:00 Outpatient [facility] [id number] [facility] 2019-03-31 00:00:00 2019-03-31 00:00:00 Outpatient [facility] [id number] [facility] 2019-01-14 10:40:40 2019-01-14 10:40:40 Outpatient [facility] [id number] [facility] 2019-01-14 08:49:09 2019-01-14 08:49:09 Outpatient [facility] [id number] [facility] 2019-01-14 00:00:00 2019-01-14 00:00:00 Outpatient [facility] [id number] [facility] Results Test Description Test Time Test Comments Results Result Comments Source CHEST 2 VIEWS 2020-01-20 15:31:00 [place] [address] Patient Name: EMILIANO GUTIÉRREZ MR #: [id number] : 1950 Age/Sex: 69/M Req #: [id number] Adm Physician: Ordered by: PETER ULRICH MD Report #: [id number] Location: OR Room/Bed: Procedure: [id number] DX/CHEST 2 VIEWS Exam Date: 01/20/20 Exam Time: 1500 REPORT STATUS: Signed EXAM: CHEST 2 VIEWS DATE: 01/20/2020 3:00 PM INDICATION: Preoperative evaluation COMPARISON: None FINDINGS: The trachea is midline. The lungs are symmetrically expanded without evidence for large focal consolidation, pneumothorax, or sign ificant pleural effusion. The cardiomediastinal silhouette and pulmonary vasculature are within normal limits. No acute osseous abnormality is identified. The surrounding soft tissues are unremarkable. IMPRESSION: No acute cardiopulmonary process identified. Signed by: Dr. Zaid London MD on 01/20/2020 3:31 PM Dictated By: ZAID LONDON MD 153 Transcribed By: ANNETTE on 01/20/20 1531 COPY TO: PETER ULRICH MD CT ABDOMEN/PELVIS W 2020-01-19 12:16:00 [place] [address] Patient Name: EMILIANO GUTIÉRREZ MR #: [id number] : 1950 Age/Sex: 69/M Req #: [id number] Adm Physician: Ordered by: CYNTHIA CANADA DO Report #: [id number] Location: ER Room/Bed: Procedure: [id number] CT/CT ABDOMEN/PELVIS W Exam Date: 01/19/20 Exam Time: 1159 REPORT STATUS: Signed EXAM: CT Abdomen and Pelvis WITH intravenous contrast INDICATION: Testicular pain COMPARISON: Testicular ultrasound of earlier the same day TECHNIQUE: Abdomen and pelvis were scanned utilizing a multidetector helical scanner from the lung base to the pubic symphysis after administration of IV contrast. Coronal and sagittal reformations were obtained. Routine protocol was performed. Scan was performed during portal venous phase. IV CONTRAST: 100mL of Isovue 370 ORAL CONTRAST: Water RADIATION DOSE: Total DLP: 377 mGy*cm Dose modulation, iterative reconstruction, and/or weight based adjustment of the mA/kV was utilized to reduce the radiation dose to as low as reasonably achievable. FINDINGS: LOWER THORAX: Normal. HEPATOBILIARY: Diffuse hepatic steatosis. No focal liver lesion. No biliary ductal dilation. Unremarkable gallbladder. SPLEEN: No splenomegaly. PANCREAS: No focal masses or ductal dilatation. ADRENALS: No adrenal nodules. KIDNEYS/URETERS: No hydronephrosis, stones, or solid mass lesions. PELVIC ORGANS/BLADDER: Mild prostatomegaly with coarse internal calcifications. Unremarkable bladder. Large right hydrocele. PERITONEUM / RETROPERITONEUM: No free air or fluid. LYMPH NODES: No lymphadenopathy. VESSELS: Scattered atherosclerotic calcifications of the nonaneurysmal abdominal aorta and major branches. GI TRACT: No distention or wall thickening. BONES AND SOFT TISSUES: Unremarkable. IMPRESSION: Large right hydrocele, more completely evaluated on the testicular ultrasound of earlier the same day. Diffuse hepatic steatosis. Signed by: Lizbeth Cueto MD on 01/19/2020 12:21 PM Dictated By: LIZBETH CUETO MD 1221 Transcribed By: ANNETTE on 01/19/20 1221 COPY TO: CYNTHIA CANADA DO US TESTICULAR DOPPLER LTD 2020-01-19 12:04:00 [place] [address] Patient Name: EMILIANO GUTIÉRREZ MR #: [id number] : 1950 Age/Sex: 69/M Req #: [id number] Adm Physician: Ordered by: CYNTHIA CANADA DO Report #: [id number] Location: ER Room/Bed: Procedure: [id number] US/US TESTICULAR DOPPLER LTD Exam Date: 01/19/20 Exam Time: 1133 REPORT STATUS: Signed Exam: Testicular ultrasound. Clinical History: Testicular swelling and pain Findings: Sonographic evaluation of the testicles. Both testes are normal in echogenicity and size without intratesticular mass. Normal symmetric bilateral blood flow without evidence of testicular torsion. Right: The right testicle measures 5.4 x 2.1 x 2.9 cm and appears unremarkable. The right epididymis measures 1.1 x 0.5 x 0.7 cm and appears unremarkable. Large right hydrocele. No varicocele. Left: The left testicle measures 5.0 x 2.3 x 2.6 cm and appears unremarkable. The left epididymis measures 1.1 x 0.9 x 0.9 cm and appears unremarkable. Trace left hydrocele. No varicocele. Impression: No testicular torsion or intratesticular mass. Large right hydrocele. Trace left hydrocele. Signed by: Lizbeth Cueto MD on 01/19/2020 12:07 PM Dictated By: LIZBETH CUETO MD 120 Transcribed By: ANNETET on 01/19/20 1207 COPY TO: CYNTHIA CANADA DO TESTICULAR 2020-01-19 12:04:00 [place] [address] Patient Name: EMILIANO GUTIÉRREZ MR #: [id number] : 1950 Age/Sex: 69/M Req #: [id number] Adm Physician: Ordered by: CYNTHIA CANADA DO Report #: [id number] Location: ER Room/Bed: Procedure: [id number] US/US TESTICULAR Exam Date: 01/19/20 Exam Time: 1133 REPORT STATUS: Signed Exam: Testicular ultrasound. Clinical History: Testicular swelling and pain Findings: Sonographic evaluation of the testicles. Both testes are normal in echogenicity and size without intratesticular mass. Normal symmetric bilateral blood flow without ev idence of testicular torsion. Right: The right testicle measures 5.4 x 2.1 x 2.9 cm and appears unremarkable. The right epididymis measures 1.1 x 0.5 x 0.7 cm and appears unremarkable. Large right hydrocele. No varicocele. Left: The left testicle measures 5.0 x 2.3 x 2.6 cm and appears unremarkable. The left epididymis measures 1.1 x 0.9 x 0.9 cm and appears unremarkable. Trace left hydrocele. No varicocele. Impression: No testicular torsion or intratesticular mass. Large right hydrocele. Trace left hydrocele. Signed by: Lizbeth Cueto MD on 01/19/2020 12:07 PM Dictated By: LIZBETH CUETO MD 06 Transcribed By: ANNETTE on 01/19/207 COPY TO: CYNTHIA CANADA DO Urine color determination 2020-01-19 12:00:00 Test Item Urine Color (test code = 5778-6) YELLOW [facility]LLOW [facility] [id number] 12:00:00* Test Item Value Reference Range Interpretation Comments Urine Clarity (test code = 56125-7) CLEAR [facility]AR [facility] by Test strip 2020-01-19 12:00:00* Test Item Value Reference Range Interpretation Comments Urine Specific [place] (test code = 5811-5) 1.020 1.010-1.02 5 [facility] measurement by automated test [id number] 12:00:00* Test Item Value Reference Range Interpretation Comments Urine pH (test code = 13038-7) 5.5 5-7 [facility] leukocyte esterase detection by [id number] 12:00:00* Test Item Value Reference Range Interpretation Comments Urine Leukocyte Esterase (test code = 5799-2) NEGATIVE NEGATIVE [facility] nitrite [id number] 12:00:00* Test Item Value Reference Range Interpretation Comments Urine Nitrite (test code = 29645-2) NEGATIVE NEGATIVE [facility] protein measurement by test strip (mass/volume)2020-01-19 12:00:00* Test Item Value Reference Range Interpretation Comments Urine Protein (test code = 5804-0) NEGATIVE NEGATIVE [facility] glucose [id number] 12:00:00* Test Item Value Reference Range Interpretation Comments Urine Glucose (UA) (test code = 2349-9) NEGATIVE NEGATIVE [facility] ketones detection by automated test [id number] 12:00:00* Test Item Value Reference Range Interpretation Comments Urine Ketones (test code = 83220-0) NEGATIVE NEGATIVE [facility] urobilinogen measurement by test strip (mass/volume)2020-01-19 12:00:00* Test Item Value Reference Range Interpretation Comments Urine Urobilinogen (test code = 28739-7) 0.2 0.2-1 [facility] total bilirubin measurement (mass/volume)2020-01-19 12:00:00* Test Item Value Reference Range Interpretation Comments Urine Bilirubin (test code = 1978-6) NEGATIVE NEGATIVE [facility] erythrocytes [id number] 12:00:00* Test Item Value Reference Range Interpretation Comments Urine Blood (test code = 00891-6) NEGATIVE NEGATIVE [facility] urine sediment leukocyte count by microscopy (number/high power field)2020-01-19 12:00:00* Test Item Value Reference Range Interpretation Comments Urine WBC (test code = 5821-4) 0-5 0-5 [facility] detection in urine sediment by light [id number] 12:00:00* Test Item Value Reference Range Interpretation Comments Urine RBC (test code = 77572-1) 0-5 0-5 [facility] detection in urine sediment by light [id number] 12:00:00* Test Item Value Reference Range Interpretation Comments Urine Bacteria (test code = 11331-1) RARE NONE [facility] Hospital[facility]pithelial cells detection in urine sediment by light [id number] 12:00:00* Test Item Value Reference Range Interpretation Comments Urine Epithelial Cells (test code = 71779-3) FEW NONE [facility] leukocytes automated count (number/volume)2020-01-19 11:16:00* Test Item Value Reference Range Interpretation Comments White Blood Count (test code = 6690-2) 7.89 4.8-10.8 [facility] erythrocytes automated count (number/volume)2020-01-19 11:16:00* Test Item Value Reference Range Interpretation Comments Red Blood Count (test code = 789-8) 4.12 4.3-5.7 [facility] hemoglobin measurement (moles/volume)2020-01-19 11:16:00* Test Item Value Reference Range Interpretation Comments Hemoglobin (test code = 70259-0) 13.4 14.0-18.0 [facility] blood hematocrit (volume fraction)2020-01-19 11:16:00* Test Item Value Reference Range Interpretation Comments Hematocrit (test code = 4544-3) 38.9 38.2-49.6 [facility] erythrocyte mean corpuscular [id number] 11:16:00* Test Item Value Reference Range Interpretation Comments Mean Corpuscular Volume (test code = 787-2) 94.4 81-99 [facility]Autom[facility] mean corpuscular hemoglobin (mass per erythrocyte)2020-01-19 11:16:00* Test Item Value Reference Range Interpretation Comments Mean Corpuscular Hemoglobin (test code = 785-6) 32.5 28-32 [facility] HospitalAutomated erythrocyte mean corpuscular hemoglobin concentration measurement (mass/volume)2020-01-19 11:16:00* Test Item Value Reference Range Interpretation Comments Mean Corpuscular Hemoglobin Concent (test code = 786-4) 34.4 31-35 [facility] HospitalRDW PdoPw-Qgf6354-14-27 11:16:00* Test Item Value Reference Range Interpretation Comments Red Cell Distribution Width (test code = 01039-4) 12.9 11.7 -14.4 [facility] HospitalAutomated blood platelet count (count/volume)2020-01-19 11:16:00* Test Item Value Reference Range Interpretation Comments Platelet Count (test code = 777-3) 239 140-360 [facility] HospitalAutomated blood segmented neutrophil count as percentage of total ddccwlzaks7809-75-94 11:16:00* Test Item Value Reference Range Interpretation Comments Neutrophils (%) (Auto) (test code = 53619-0) 57.4 38.7-80.0 [facility] HospitalAutomated blood lymphocyte count as percentage ot total qabrrksgkg5987-82-59 11:16:00* Test Item Value Reference Range Interpretation Comments Lymphocytes (%) (Auto) (test code = 736-9) 31.8 18.0-39.1 [facility] HospitalAutomated blood monocyte count as percentage of total tbuwymryir2717-43-19 11:16:00* Test Item Value Reference Range Interpretation Comments Monocytes (%) (Auto) (test code = 5905-5) 8.0 4.4-11.3 [facility] HospitalAutomated blood eosinophil count as percentage of total nccgedfwsi0836-52-83 11:16:00* Test Item Value Reference Range Interpretation Comments Eosinophils (%) (Auto) (test code = 713-8) 1.9 0.0-6.0 [facility] HospitalAutomated blood basophil count as percentage of total kmxqqxocqg7938-99-75 11:16:00* Test Item Value Reference Range Interpretation Comments Basophils (%) (Auto) (test code = 706-2) 0.8 0.0-1.0 [facility] HospitalFluoroscopic procedure less than one hour rmuzagyp3603-33-97 11:16:00* Test Item Value Reference Range Interpretation Comments IM GRANULOCYTES % (test code = IM GRANULOCYTES %) 0.1 0.0- 1.0 [facility] HospitalAutomated blood neutrophil count 2020-01-19 11:16:00* Test Item Value Reference Range Interpretation Comments Neutrophils # (Auto) (test code = 751-8) 4.5 2.1-6.9 [facility] HospitalBlood lymphocytes count (number/volume) 2020-01-19 11:16:00* Test Item Value Reference Range Interpretation Comments Lymphocytes # (Auto) (test code = 56907-7) 2.5 1.0-3.2 [facility] HospitalBlood monocytes automated count (number/volume)2020-01-19 11:16:00* Test Item Value Reference Range Interpretation Comments Monocytes # (Auto) (test code = 742-7) 0.6 0.2-0.8 [facility] HospitalAutomated blood eosinophil count 2020-01-19 11:16:00* Test Item Value Reference Range Interpretation Comments Eosinophils # (Auto) (test code = 711-2) 0.2 0.0-0.4 [facility] HospitalAutomated blood basophil count (count/volume)2020-01-19 11:16:00* Test Item Value Reference Range Interpretation Comments Basophils # (Auto) (test code = 704-7) 0.1 0.0-0.1 [facility] HospitalFluoroscopic procedure less than one hour foarybrb1317-24-70 11:16:00* Test Item Value Reference Range Interpretation Comments Absolute Immature Granulocyte (auto (yolanda t code = Absolute Immature Granulocyte (auto) 0.01 0-0.1 [facility] sodium measurement (moles/volume)2020-01-19 11:16:00* Test Item Value Reference Range Interpretation Comments Sodium Level (test code = 2951-2) 140 136-145 [facility]lakeerum or plasma potassium measurement (moles/volume)2020-01-19 11:16:00* Test Item Value Reference Range Interpretation Comments Potassium Level (test code = 2823-3) 4.0 3.5-5.1 [facility]lake[facility] or plasma chloride measurement (moles/volume)2020-01-19 11:16:00* Test Item Value Reference Range Interpretation Comments Chloride Level (test code = 2075-0) 108 98-107 [facility]lakeerum or plasma carbon dioxide, total measurement (moles/volume)2020-01-19 11:16:00* Test Item Value Reference Range Interpretation Comments Carbon Dioxide Level (test code = 2028-9) 22 22-29 [facility]lakeerum or plasma anion dcp5807-76-71 11:16:00* Test Item Value Reference Range Interpretation Comments Anion Gap (test code = 97061-6) 14.0 8-16 [facility]lakeerum or plasma urea nitrogen measurement (mass/volume)2020-01-19 11:16:00* Test Item Value Reference Range Interpretation Comments Blood Urea Nitrogen (test code = 3094-0) 20 7-26 [facility]lake[facility] or plasma creatinine measurement (mass/volume)2020-01-19 11:16:00* Test Item Value Reference Range Interpretation Comments Creatinine (test code = 2160-0) 1.08 0.72-1.25 [facility]lakeer[facility] or plasma urea nitrogen/creatinine mass uniyj5802-74-90 11:16:00* Test Item Value Reference Range Interpretation Comments BUN/Creatinine Ratio (test code = 3097-3) 19 6-25 [facility] HospitalEstimated glomerular filtration rate (GFR) zaexyguxptkwf6315-11-26 11:16:00* Test Item Value Reference Range Interpretation Comments Estimat Glomerular Filtration Rate (test code = 335606923) > 60 >60 Ranges were taken from the National Kidney Disease Education Program and the [facility] literature.Reference ranges:60 or greater: Rrorwf42-41 ( for 3 consecutive months): Chronic kidney disease 15 or less: Kidney failureSt[facility] HospitalGlucose ryhjzofcuhq7143-92-31 11:16:00* Test Item Value Reference Range Interpretation Comments Glucose Level (test code = OSZ0205) 117 74-118 [facility]lakeer[facility] or plasma calcium measurement (mass/volume)2020-01-19 11:16:00* Test Item Value Reference Range Interpretation Comments Calcium Level (test code = 40409-9) 9.3 8.4-10.2 [facility]lakeer[facility] or plasma total bilirubin measurement (mass/volume)2020-01-19 11:16:00* Test Item Value Reference Range Interpretation Comments Total Bilirubin (test code = 1975-2) 0.4 0.2-1.2 [facility] HospitalFluoroscopic procedure less than one hour wixbtatr9968-03-39 11:16:00* Test Item Value Reference Range Interpretation Comments Aspartate Amino Transf (AST/SGOT) (test code = Aspartate Amino Transf (AST/SGOT)) 16 5-34 [facility]lakeerum or plasma alanine aminotransferase measurement (enzymatic activity/volume)2020-01-19 11:16:00* Test Item Value Reference Range Interpretation Comments Alanine Aminotransferase (ALT/SGPT) (test code = 1742-6) 14 0-55 [facility]lakeer[facility] or plasma protein measurement (mass/volume)2020-01-19 11:16:00* Test Item Value Reference Range Interpretation Comments Total Protein (test code = 2885-2) 7.6 6.5-8.1 [facility]lakeerum or plasma albumin measurement (mass/volume)2020-01-19 11:16:00* Test Item Value Reference Range Interpretation Comments Albumin (test code = 1751-7) 4.0 3.5-5.0 [facility] HospitalPlasma globulin measurement (mass/volume) 2020-01-19 11:16:00* Test Item Value Reference Range Interpretation Comments Globulin (test code = 88886-4) 3.6 2.3-3.5 [facility]lakeerum or plasma albumin/globulin mass extlf3112-36-91 11:16:00* Test Item Value Reference Range Interpretation Comments Albumin/Globulin Ratio (test code = 1759-0) 1.1 0.8-2.0 [facility]lakeer[facility] or plasma alkaline phosphatase measurement (enzymatic activity/volume)2020-01-19 11:16:00* Test Item Value Reference Range Interpretation Comments Alkaline Phosphatase (test code = 6768-6) 112 40-150 [facility]- DUP AB/PEL/SC [id number] 17:07:00 Name: EMILIANO GUTIÉRREZ [facility] : 1950 Age[facility]S: 69 [facility] [address] [id number] Loc: [place] [address] Phys: Frantz Centeno MD Acct: [id number] Di s Date: Status: REG ER PHONE #: Exam Date: 12/12/2019 1623 FAX #: Reason: TESTICLE PAIN EXAMS: CPT CODE: [id number] DUP AB/PEL/SC COMP 44211 REASON FOR EXAM: TESTICLE PAIN EXAM ORDER DATE: 12/12/2019 3:47 PM Ordering: Maninder Centeno MD Attending:Frantz Centeno MD Location:[facility] PROCEDURE: - US SCROTUM AND CNTS, - DUP AB/PEL/SC COMP FINDINGS: The right testicle measures 4.8 x 2 cm. The left testicle measures 3.5 x 1.7 cm. No evidence of testicular mass. No evidence of abscess. Unremarkable testicular flow is seen. Duplex scans of the testic ular arteries were performed. Turner scale images were supplemented with co camryn-flow Doppler. Doppler flow velocity analysis (duplex Doppler) was per formed The right epididymis measures 1.2 cm. The left epididymis m easures 0.9 cm. No evidence of epididymitis. Minimal left va ricocele IMPRESSION: Large right hydrocele. Small left hydrocel e. 0.3 cm left epididymal cyst. at 1707 Reported and signed by: Papito Arroyo M.D. CC: Frantz Centeno MD Technologist: Williams Urias Tr [facility] Date/Time: 12/12/2019 (170) Luis E Orig Print D/ T: S: 12/12/2019 (7972) Probe: PAGE 1 Signed Report - US SCROTUM AND CNTS 2019-12-12 17:07:00 Name: EMILIANO GUTIÉRREZ [facility] : 1950 Age/S: 69 / M [address] Unit #: [id number] Loc: [place] [address] Phys: Frantz Centeno MD Acct: [id number] Dis Date: Status: REG ER PHONE #: [phone] Exam Date: 12/12/2019 1621 FAX #: [phone] Reason: TESTICLE PAIN EXAMS: CPT CODE: [id number] US SCROTUM AND CNTS 80786 REASON FOR EXAM: TESTICLE PAIN EXAM ORDER DATE: 12/12/2019 3:47 PM Ordering: Frantz Centeno MD Attending:Frantz Centeno MD Location:[facility] PROCEDURE: - US SCROTUM AND CNTS, - DUP AB/PEL/SC COMP FINDINGS: The right testicle measures 4.8 x 2 cm. The left testicle measures 3.5 x 1.7 cm. No evidence of testicular mass. No evidence of abscess. Unremarkable testicular flow is seen. Duplex scans of the testicular arteries were performed. Turner scale images were supplemented with color-flow Doppler. Doppler flow velocity analysis (duplex Doppler) was performed The right epididymis measures 1.2 cm. The left epididymis measures 0.9 cm. No evidence of epididymitis. Minimal left varicocele IMPRESSION: Large right hydrocele. Small left hydrocele. 0.3 cm left epididymal cyst. at 1707 Reported and signed by: Papito Arroyo M.D. CC: Frantz Centeno MD Technologist: Williams Urias Trnscb Date/Time: 12/12/2019 (1706) Luis E Orig Print D/T: S: 12/12/2019 (2352) Probe: PAGE 1 Signed Report URINALYSIS [id number] 16:36:00* Test Item Value Reference Range Interpretation Comments UA COLOR (test code = COLU) YELLOW YELLOW UA APPEARANCE (test code = APPU) CLEAR CLEAR UA GLUCOSE DIPSTICK (test code = DGLUU) 500 (3+) mg/dL NEGATIVE A UA BILIRUBIN DIPSTICK (test code = BILU) NEGATIVE mg/dL NEGATIVE UA KETONE DIPSTICK (test code = KETU) NEGATIVE mg/dL NEGATIVE UA SPECIFIC GRAVITY (test code = SGU) 1.024 1.001-1.035 UA BLOOD DIPSTICK (test code = ARIA) Negative mg/dL NEGATIVE UA PH DIPSTICK (test code = RIVAS) 7.0 5.0-8.0 UA PROTEIN DIPSTICK (test code = PROU) 20 (Trace) mg/dL NEGATIVE A UA UROBILINIOGEN DIPSTICK (test code = URO) 2.0 (1+) mg/dL NEGATIVE A UA NITRITE DIPSTICK (test code = CACHORRO) NEGATIVE NEGATIVE UA LEUKOCYTE ESTERASE W REFLEX (test code = LEUUR) NEGATIVE Anmol/uL NEGATIVE UA WBC (test code = WBCU) 0-5 per HPF 0-5 UA RBC (test code = RBCU) 0-2 #/HPF 0-5 UA EPITHELIAL CELLS (test code = EPIU) FEW per HPF FEW UA BACTERIA (test code = BACU) FEW #/HPF NONE UA MUCUS (test code = MUCU) FEW #/LPF FEW Urine Source? Clean CatchURINALYSIS [id number] 16:34:00* Test Item Value Reference Range Interpretation Comments UA COLOR (test code = COLU) YELLOW YELLOW UA APPEARANCE (test code = APPU) CLEAR CLEAR UA GLUCOSE DIPSTICK (test code = DGLUU) 500 (3+) mg/dL NEGATIVE A UA BILIRUBIN DIPSTICK (test code = BILU) NEGATIVE mg/dL NEGATIVE UA KETONE DIPSTICK (test code = KETU) NEGATIVE mg/dL NEGATIVE UA SPECIFIC GRAVITY (test code = SGU) 1.024 1.001-1.035 UA BLOOD DIPSTICK (test code = ARIA) Negative mg/dL NEGATIVE UA PH DIPSTICK (test code = RIVAS) 7.0 5.0-8.0 UA PROTEIN DIPSTICK (test code = PROU) 20 (Trace) mg/dL NEGATIVE A UA UROBILINIOGEN DIPSTICK (test code = URO) 2.0 (1+) mg/dL NEGATIVE A UA NITRITE DIPSTICK (test code = CACHORRO) NEGATIVE NEGATIVE UA LEUKOCYTE ESTERASE W REFLEX (test code = LEUUR) NEGATIVE Anmol/uL NEGATIVE UA WBC (test code = WBCU) per HPF 0-5 UA RBC (test code = RBCU) per HPF 0-5 UA EPITHELIAL CELLS (test code = EPIU) per HPF Few UA BACTERIA (test code = BACU) per HPF NONE Urine Source? Clean CatchBASIC METABOLIC [id number] 16:32:00* Test Item Value Reference Range Interpretation Comments SODIUM (test code = NA) 140 mmol/L 136-145 N POTASSIUM (test code = K) 4.0 mmol/L 3.5-5.1 N CHLORIDE (test code = CL) 109.0 mmol/L 98-107 H CARBON DIOXIDE (test code = CO2) 26.0 mmol/L 21-32 N ANION GAP (test code = GAP) 9.0 10-20 L GLUCOSE (test code = GLU) 137 mg/dL 74-106 H BLOOD UREA NITROGEN (test code = BUN) 13 mg/dL 7-18 N GLOMERULAR FILTRATION RATE (test code = GFR) > 60 mL/min >=60 Estimated GFR by using Modified MDRD formula.Chronic kidney disease is defined as either kidney damageor GFR <60 mL/min/1.73 m2 for >3 months. CREATININE (test code = CREAT) 1.10 mg/dL 0.7-1.3 N BUN/CREATININE RATIO (test code = BUN/CREA) 11.5 10-20 N CALCIUM (test code = CA) 8.5 mg/dL 8.5-10.1 N BASIC METABOLIC [id number] 16:27:00* Test Item Value Reference Range Interpretation Comments SODIUM (test code = NA) 140 mmol/L 136-145 N POTASSIUM (test code = K) 4.0 mmol/L 3.5-5.1 N CHLORIDE (test code = CL) 109.0 mmol/L 98-107 H CARBON DIOXIDE (test code = CO2) mmol/L 21-32 ANION GAP (test code = GAP) 10-20 GLUCOSE (test code = GLU) mg/dL 74-106 BLOOD UREA NITROGEN (test code = BUN) mg/dL 7-18 GLOMERULAR FILTRATION RATE (test code = GFR) mL/min >=60 CREATININE (test code = CREAT) mg/dL 0.7-1.3 BUN/CREATININE RATIO (test code = BUN/CREA) 10-20 CALCIUM (test code = CA) 8.5 mg/dL 8.5-10.1 N CBC W/O [id number] 16:07:00* Test Item Value Reference Range Interpretation Comments WHITE BLOOD CELL (test code = WBC) 8.1 K/mm3 4.5-12.5 N RED BLOOD CELL (test code = RBC) 4.00 mill/mm3 4.0-5.8 N HEMOGLOBIN (test code = HGB) 12.9 gram/dL 13.0-17.5 L HEMATOCRIT (test code = HCT) 37.6 % 42.0-52.0 L MEAN CELL VOLUME (test code = MCV) 94.0 fL 80-98 N MEAN CELL HGB (test code = MCH) 32.3 picogram 27.0-33.0 N MEAN CELL HGB CONCETRATION (test code = MCHC) 34.3 gram/dL 33.0-36. 0 N RED CELL DISTRIBUTION WIDTH (test code = RDW) 12.3 % 11.6-16. 2 N PLATELET COUNT (test code = PLT) 248 K/mm3 150-450 N MEAN PLATELET VOLUME (test code = MPV) 8.9 fL 6.7-11.0 N U/S [id number] 14:10:37IMPRESSION: 1. No evidence of testicular torsion. No testicular mass. 2. Large right hydrocele resulting in displacement of the testicularcapsule. This suggests the hydrocele is under tension. Dictated By: Zohreh Ahuja MD, 12/01/2019 1:03 PM I have reviewed the study and agree with the findings in this report. Signed By: Emma Pa, 12/01/2019 2:10 PM Interface, Rad/Mammog In - 12/01/2019 2:15 PM CDTEXAM: Scrotal Ultrasound with DuplexINDICATION: right sided testicular swelling COMPARISON: None TECHNIQUE: Transverse and longitudinal images were obtained of thescrotum with grayscale imaging, color Doppler and spectral waveformanalysis. FINDINGS:Right testis: Size: 4.3 x 2.6 x 2.7 cm. Echogenicity: Normal Morphology: The posterior capsule is displaced anteriorly Mass/Cysts: NoneLeft testis: Size: 4.5 x 2.1 x 3.0 cm. Echogenicity: Normal Mass/Cysts: NoneEpididymis: Appearance: Normal in size without increased vascularity. Mass/Cysts:1. 0.5 x 0.3 x 0.3 cm appendix epididymis2. 0.5 5.4 x 0.4 cm cyst in the head of the left epididymis,representing epididymal cyst/ spermatocele.Extratesticular:Masses: NoneHydrocele: Large right hydrocele. Small left hydrocele.Varicocele: NoneDoppler:Normal arterial flow to both testes and symmetrical flow on colorDoppler evaluation is seen. No evidence of testicular t orsion. IMPRESSIONIMPRESSION: 1. No evidence of testicular torsion. No testicula r mass.2. Large right hydrocele resulting in displacement of the testicularcapsu le. This suggests the hydrocele is under tension.Dictated By: Zohreh Ahuja MD, 1:03 PMI have reviewed the study and agree with the findings in this rep ort.Signed By: Emma Pa, 12/01/2019 2:10 PMHarris [facility]DUSAINT [facility]/PEL VASCULAR STUDY, [id number] 14:10:37IMPRESSION: 1. No evidence of testicular torsion. No testicular mass. 2. Large right hydrocele resulting in displacement of the testicularcapsule. This suggests the hydrocele is under tension. Dictated By: Zohreh Ahuja MD, 12/01/2019 1:03 PM I have reviewed the study and agree with the findings in this report. Signed By: Emma Pa, 12/01/2019 2:10 PM Interface, Rad/Mammog In - 12/01/2019 2:15 PM CDTEXAM: Scrotal Ultrasound with DuplexINDICATION: right sided testicular swelling COMPARISON: None TECHNIQUE: Transverse and longitudinal images were obtained of thescrotum with grayscale imaging, color Doppler and spectral waveformanalysis. FINDINGS:Right testis: Size: 4.3 x 2.6 x 2.7 cm. Echogenicity: Normal Morphology: The posterior capsule is displaced anteriorly Mass/Cysts: NoneLeft testis: Size: 4.5 x 2.1 x 3.0 cm. Echogenicity: Normal Mass/Cysts: NoneEpididymis: Appearance: Normal in size without increased vascularity. Mass/Cysts:1. 0.5 x 0.3 x 0.3 cm appendix epididymis2. 0.5 5. 4 x 0.4 cm cyst in the head of the left epididymis,representing epididymal cyst/ spermatocele.Extratesticular:Masses: NoneHydrocele: Large right hydrocele. Small left hydrocele.Varicocele: NoneDoppler:Normal arterial flow to both testes and symmetrical flow on colorDoppler evaluation is seen. No evidence of testicular t orsion. IMPRESSIONIMPRESSION: 1. No evidence of testicular torsion. No testicula r mass.2. Large right hydrocele resulting in displacement of the testicularcapsu le. This suggests the hydrocele is under tension.Dictated By: Zohreh Ahuja MD, 1:03 PMI have reviewed the study and agree with the findings in this rep ort.Signed By: Emma Pa, 12/01/2019 2:10 PMCon[facility] CampusOPHTHALMOLOGY RETINAL [id number] 01:17:47* Test Item Value Reference Range Interpretation Comments RETINAL SCAN-FINAL RESULT (test code = 40465) NORMAL Right Diabetic Retinopathy (test code = 658524) None Right Macular Edema (test code = 82794) None Right Other Suspected Conditions (test code = 95385) None Right Image Quality (test code = 30917) Gradable Image Left Diabetic Retinopathy (test code = 21131) None Left Macular Edema (test code = 21360) None Left Other Suspected Conditions (test code = 43511) None Left Image Quality (test code = 33591) Gradable Image AMPARO (test code = AMPARO) Retinal Study Result for IRMA GUTIÉRREZ, a 69 y/o, M (: 1950, )presented to [facility] on 11-29-2019 for a retinal imaging study of the left and right eyes. Based on the findings of the study, the following is recommended for EMILIANO ESCOBARormal Scan: Please advise the patient to return for another scan in 1 year. Interpreting Provider's Comments: No comments provided Right eye findings: Normal Result. Negative for Diabetic Retinopathy. Left eye findings: Normal Result. Negative for Diabetic Retinopathy. This result was electronically signed by Joseph Thorne MD, , Taxonomy: [id number] on 11-29-2019 06:17:47 [facility] time. NOTE: Any pathology noted on this diabetic retinal evaluation should be confirmed by an appropriate ophthalmic examination. [facility] for [id number] 14:36:00* Test Item Value Reference Range Interpretation Comments TPA (test code = 93299-1) Negative Negative, Equivocal Final Report (test code = 95562-2) Negative Negative Lab Interpretation (test code = 89672-5) Normal [facility] CampusHemoglobin [id number] 13:50:00* Test Item Value Reference Range Interpretation Comments Hemoglobin A1c (test code = 4548-4) 7.0 % 4.3-6.1 H Estimated Average Glucose (test code = 62656521) 154 mg/dL 70-11 0 H Lab Interpretation (test code = 70186-2) Abnormal [facility] CampusHIV-1/HIV-2 Routine [id number] 13:31:00* Test Item Value Reference Range Interpretation Comments HIV Ag/Ab Combo (test code = 54223-9) Negative Negative Lab Interpretation (test code = 00249-8) Normal [facility] CampusUrine Drug [id number] 13:18:00* Test Item Value Reference Range Interpretation Comments Opiate, Ur (test code = 09349-0) Negative Negative Calibrated Standard: Morphine Positive if urine level > or = 300 ng/dL Amphetamine (test code = 17473-3) Negative Negative Calibrated Standard: D- Methamphetamine Positive if urine level > or = 1000 ng/mL Barbiturate (test code = 20737-9) Negative Negative Calibrated Standard: Secobarbital Positive if urine level is > or = 200 ng/mL Benzodiazepine (test code = 15689-6) Negative Negative Calibrated Standard: Lormethazepam Positive if urine level is > or = 200 ng/mL Cocaine (test code = 02928-4) Negative Negative Calibrated Standard: Benzoylecgonine Positive if urine level > or = 300 ng/dL PCP (test code = 44620-3) Negative Negative C alibrated Standard: Phencyclidine Positive if urine level > or = 25 ng/dL Cannabinoid (test code = 85337-6) Negative Negative Calibrated Standard: 11 nor-delta(9)-THC carboxylic acid Positive if urine level > or = 50 ng/mL Lab Interpretation (test code = 22997-0) Normal [facility] CampusOwgjudWLV6222-63-70 13:13:00* Test Item Value Reference Range Interpretation Comments TSH (test code = 85828458) 1.61 0.45- 5.33 uIU/mL Lab Interpretation (test code = 66641-1) Normal [facility] CampusLipid [id number] 10:39:00* Test Item Value Reference Range Interpretation Comments Cholesterol (test code = 2093-3) 144.0 mg/dL <=200.0 Desirable: < 200.0 mg/dLBorderline: 200 - 240 mg/dLHigh Risk: > 240 mg/dL Triglyceride (test code = 00348877) 94 mg/dL <150 Normal: < 150.0 mg/dL Borderline: 150-199 mg/dL High: 200-499 mg/dL Very High: >= 500 mg/dL HDL (test code = 2085-9) 30.0 mg/dL See Reference Range Narrative . Increased CHD Risk: < 40.0 mg/dL Decreased CHD Risk: > 60 mg/dL LDL (test code = 77973-1) 95 mg/dL <100 Op timal: < 100.0 mg/dLNear Optimal: 120-129 mg/dLBorderline: 130-159 mg/dLHigh: 160-189 mg/dLVery High: >=190 mg/dL Patient Fasting? (test code = 57736791) [facility] [id number] 10:30:00* Test Item Value Reference Range Interpretation Comments Sodium (test code = 2951-2) 139 mmol/L 136-145 Potassium (test code = 2823-3) 3.9 mmol/L 3.5-5.1 Chloride (test code = 2075-0) 104 mmol/L 98-107 CO2 (test code = 07796784) 27 mmol/L 21-31 Glucose (test code = 76260016) 161 mg/dL 70-110 H Calcium (test code = 08660889) 9.8 mg/dL 8.6-10.3 Urea Nitrogen (test code = 78017780) 16.0 mg/dL 7-25 Creatinine (test code = 49987802) 1.1 mg/dL 0.7-1.3 Alkaline Phosphatase (test code = 20560637) 106 U/L 34-104 H ALT (test code = 37560998) 11 U/L 7-52 AST (test code = 21905849) 13 U/L 13-39 Total Protein (test code = 2885-2) 7.6 g/dL 6-8.3 GFR, Estimated (test code = 46067973) 66 >=90 mL/min/1.73 m2 L Albumin (test code = 98746-5) 4.4 g/dL 4.2-5.5 Anion Gap (test code = 16179257) 8 mmol/L 5-16 Lab Interpretation (test code = 06189-6) Abnormal [facility] FOOT [id number] 15:01:08Fe Pruett, ResidentMD 07/18/2019 3:40 PMDiabetic Foot Exam was performed at 07/18/2019 3:40 PM. Right foot sensation is normal, right foot pulses are normal, right foot appearance is normal. Left foot sensation is normal, left foot pulses are normal, left foot appearance is normal. [facility]- XR CHEST 2 [id number] 07:44:00 FAX: Arcelia Mac NP [place]: St: REG Name: EMILIANO MCCARTHY [facility] : [birth year] Age/S: 68/M [address] [facility] Unit #: [id number] Loc: [place] [address] Phys: Arcelia Mac NP Acct: [id number] Dis Date: Status: REG ER PHONE #: [phone] Exam Date: 08/28/2018737 FAX #: [phone] Reason: cough EXAMS: CPT CODE: [id number] XR CHEST 2 V [id number] EXAM: Chest X-ray, 2 views; CLINICAL HISTORY: Cough for 2 to 3 weeks; FINDINGS: The lungs are clear, no infiltrates, no edema; no effusions; no pneumoth orax; normal cardiomediastinal silhouette. IMPRESSION: Normal chest x-ray. at 0744 Reported and signed by: Mesfin Buck M.D. CC: Arcelia Mac NP Technologist: Nithya SHOEMAKER(R); Estela Real(R) Trnscrd Da te/Time/By: 08/28/2018 (0744) : By: Tristian Orig Print D/T: S: 08/28 (9089) PAGE 1 Signed Report
[2020-02-03 17:33] LABS: ALBUMIN 4.5 g/dL (3.5-5.0); ALBUMIN/GLOBULIN RATIO 1.3 (0.8-2.0); CALCIUM 8.7 mg/dL (8.4-10.2); CREATININE, SERUM 1.24 mg/dL (0.72-1.25)
[2020-02-03 17:37] LABS: CLARITY,URINE CLEAR (CLEAR); COLOR,URINE YELLOW (YELLOW); LEUKOCYTE ESTERASE ,URINE NEGATIVE (NEGATIVE); NITRITE,URINE NEGATIVE (NEGATIVE); PROTEIN,URINE DIPSTICK NEGATIVE (NEGATIVE)
[2020-02-03 17:38] LABS: BILIRUBIN,URINE NEGATIVE (NEGATIVE); KETONES,URINE NEGATIVE (NEGATIVE); URINE UROBILINOGEN 1 mg/dL (0.2 - 1)
[2020-02-03 17:41] LABS: MUCUS,URINE FEW (RARE); RBC,URINE 0-5 /HPF (0-5); WBC,URINE (MAN) 0-5 /HPF (0-5)
[2020-02-03] MEDS ORDERED: IOPAMIDOL 370 MG/ML 200 ML INFUS..BTL INJ ONE (17:42)
[2020-02-03] MEDS ORDERED: SODIUM CHLORIDE 0.9% 50ML 50 ML ONE (17:42)
--- NOTE | 2020-02-03 18:03 | Diagnostic Imaging Report ---
EXAM: Scrotal Ultrasound with Duplex INDICATION: Scrotal pain and swelling. Patient had history of right testicular hydrocele surgery on 01/25/2020. COMPARISON: None TECHNIQUE: Transverse and longitudinal images were obtained of the scrotum with grayscale imaging, color Doppler and spectral waveform analysis. FINDINGS: Right testis: Size: 4.1 x 2.5 x 2.5 cm, normal in size. Echogenicity: Normal Mass/Cysts: None Left testis: Size: 4.3 x 2.2 x 3.0 cm, normal in size. Echogenicity: Normal Mass/Cysts: None Epididymis: The right epididymis measures 1.2 x 0.6 x 0.9 cm. The left epididymis measures 1.3 x 0.7 x 0.7 cm. Appearance: Normal in size without increased vascularity. Mass/Cysts: There is a 0.3 cm cyst in left epididymal head. Extratesticular: Masses: There is a convex, poorly defined heterogeneous mass superior to the right testicle. Hydrocele: There is a small hydrocele in the left. Varicocele: Left varicocele. Doppler: Normal arterial flow to both testes and symmetrical flow on color Doppler evaluation is seen. No evidence of testicular torsion. IMPRESSION: 1. No evidence of testicular torsion. 2. Complex poorly defined heterogeneous mass superior to the right testicle which may represent postoperative changes. However, urology follow-up is recommended to further evaluate these findings. Signed by: Eladia Russell MD on 02/03/2020 5:59 PM
[2020-02-03] MEDS ORDERED: ATORVASTATIN CA40 MG (18:36)
[2020-02-03] MEDS ORDERED: TRIAMCINOLONE A15 G3 (18:36)
[2020-02-03] MEDS ORDERED: TYLENOL # 31 EA (18:36)
[2020-02-03] MEDS ORDERED: TRIMETHOPRIM (18:36)
[2020-02-03] MEDS ORDERED: SULFAMETHOXAZOLE (18:36)
--- NOTE | 2020-02-03 18:41 | Diagnostic Imaging Report ---
EXAM: CT Abdomen and Pelvis WITH contrast INDICATION: Scrotal cellulitis. COMPARISON: Same day ultrasound of the scrotum. CT abdomen/pelvis on 01/19/2020. TECHNIQUE: Abdomen and pelvis were scanned utilizing a multidetector helical scanner from the lung base to the pubic symphysis after administration of IV contrast. Coronal and sagittal reformations were obtained. Routine protocol was performed. Scan was performed when during portal venous phase. IV CONTRAST: 100 mL of Isovue 370 ORAL CONTRAST: None COMPLICATIONS: None RADIATION DOSE: Total DLP: 361.34 mGy*cm Estimated effective dose: (DLP x 0.015 x size factor) mSv CTDIvol has been reviewed. It is below the limits set by the Radiation Protocol Committee (RPC). Dose modulation, iterative reconstruction, and/or weight based adjustment of the mA/kV was utilized to reduce the radiation dose to as low as reasonably achievable. FINDINGS: LINES and TUBES: None. LOWER THORAX: Atherosclerotic calcification of the coronary vessels. Lung bases are clear. HEPATOBILIARY: The liver is diffuse hypodense compared to the spleen, consistent with diffuse hepatic diffuse hepatic steatosis. No focal hepatic lesions. No biliary ductal dilation. GALLBLADDER: No radio-opaque stones or sludge. No wall thickening. SPLEEN: No splenomegaly. PANCREAS: No focal masses or ductal dilatation. ADRENALS: No adrenal nodules KIDNEYS/URETERS: Kidneys enhance symmetrically. No hydronephrosis. No cystic or solid mass lesions. No stones. GI TRACT: No abnormal distention, wall thickening, or evidence of bowel obstruction. Appendix is normal. PELVIC ORGANS/BLADDER: Dystrophic calcification of the prostate gland. Pelvic organs are otherwise unremarkable. LYMPH NODES: No lymphadenopathy. VESSELS: Scattered mild arterial vascular calcifications. PERITONEUM / RETROPERITONEUM: No free air or fluid. BONES: There are degenerative changes in the spine. SOFT TISSUES: There is heterogeneity of the right scrotum with surrounding soft tissue edema, better visualized on same day scrotal ultrasound. IMPRESSION: 1. Heterogeneity of the right scrotum with surrounding soft tissue edema, better visualized on same day scrotal ultrasound. This may represent postoperative changes. However, urology follow-up is recommended to further evaluate these findings. 2. No acute abdominopelvic abnormality identified. 3. Hepatic steatosis. Signed by: Eladia Russell MD on 02/03/2020 6:37 PM
[2020-02-03] MEDS ORDERED: PIPERACILLIN/TAZO 4.5 GM 100 ML IV ONE (19:15)
--- OUTSIDE RECORDS SUMMARY | 2020-02-03 19:16 | XMS REPORT | Continuity of Care Document ---
Author Author [facility] t Organization [facility] Address [facility] [place] [address] Phone Unavailable Care Team Providers Care Fish Net Maker Name Role Phone NO, PCP PCP Unavailable Deon CANADA AMBICA Attphys Unavailable HAMPEL, PETER Attphys Unavailable Arin RN, F Erie Attphys Unavailable Chago Erwin Attphys [phone] Chago Gutierrez MD Attphys Katherine Gama Attphys Unavailable Mily MedelMD, W Momo Attphys [phone] Bisi HILARIO, Aicha Attphys [phone] Velasquez Lang MD Attphys Jomar HILARIO, Dawood Pa Attphys Duyen HILARIO, Mikayla Becerril Attphys John MedelMD, L Brock Attphys [phone] Flynn Resident, R Fe Attphys [phone] HAMPEL, PETER Admphys Unavailable Payers Payer Name Policy Type Policy Number Effective Date Expiration Date S ource MEDICAREMEDICARE PART A & Bxxxxxxxxxxx1/ [id number] [address] xxxxxxxxxxx 2013 00:00:00 [facility] Problems Condition Name Condition Details Condition Category Status Onset Date Resolution Date Last Treatment Date Treating Clinician Comments Source Type 2 diabetes mellitus Type 2 diabetes mellitus Disease Acti ve 2015-06-19 00:00:00 [facility] Problem Condition Active [facility] Renal insufficiency Renal insufficiency Disease Resolved 2019-11 00:00:00 2019-11-29 00:00:00 2019-11-29 09:20:02 Andrew maher History of Past Illness Condition Name Condition Details Condition Category Status Onset Date Resolution Date Last Treatment Date Treating Clinician Comments Source Newly diagnosed diabetes Newly diagnosed diabetes Disease Reso lved 2015-06-19 00:00:00 2019-11-24 00:00:00 2019-11-24 10:33:58 [facility] Health maintenance examination Health maintenance examination Disea se Resolved 2015-02-19 00:00:00 2019-11-24 00:00:00 2019-11-24 10:34:03 [facility] Diabetes mellitus Diabetes mellitus Disease Resolved 2015-02-19 00:00:00 2019-11-24 00:00:00 2019-11-24 10:34:00 Andrew blakely Allergies, Adverse Reactions, Alerts Allergy Name Allergy Type Status Severity Reaction(s) Onset Date Inacti ve Date Treating Clinician Comments Source No Known Allergies DA Active U 2018-08-28 00:00:00 [facility] No Known Allergies DA Active U 2016-09-07 00:00:00 [facility] Social History Social Habit Start Date Stop Date Quantity Comments Source Sex Assigned At [facility] Alcohol intake 2019-11-29 00:00:00 2019-11-29 00:00:00 Current non-drinker of alcohol (finding) [facility] History SDOH Food Worry 2018-06-21 00:00:00 2018-06-21 00:00:00 1 [facility] History SDOH Food Scarcity 2018-06-21 00:00:00 2018-06-21 00:00:00 1 [facility] Smoking Status Start Date Stop Date Source Never smoker [facility] Medications Ordered Medication Name Filled Medication Name Start Date Stop Da te Current Medication? Ordering Clinician Indication Dosage Frequency Signature (SIG) Comments Components Source Tramadol Hcl (Ultram) 50 Mg TABLET Tramadol Hcl (Ultram) 50 Mg TABLET 2020-01-19 13:15:00 Yes 50 Every 6 Ho urs as needed for Mild Pain (1-3) Or Fever>100.8 [facility] tropicamide (MYDRIACYL) 0.5 % ophthalmic solution 2019-11-29 00:00:00 2020-05-27 23:59:00 Yes Type 2 diabetes jack itus without complication, without long-term current use of insulin 1[drp] Instill 1 Drop in each eye once as needed for up to 1 dose (for poor retina scan image). [facility] atorvastatin (LIPITOR) 40 mg tablet 2019-11-26 11:06:4 1 2019-11-26 00:00:00 No 40mg Take 40 mg by mouth at bedtime nightly. [facility] atorvastatin (LIPITOR) 40 mg tablet 2019-11-26 00:00:00 Yes Hypercholesteremia TAKE 1 TABLET BY MOUTH EVERY NIGHT AT B EDTIME [facility] lisinopriL (PRINIVIL) 10 mg tablet 2019-09-26 00:00:00 Yes Essential hypertension 10mg QD Take 1 tablet by mouth daily. [facility] metFORMIN (GLUCOPHAGE) 500 mg tablet 2019-07-18 00:00:00 Yes Type 2 diabetes mellitus without complication, without long-term current use of insulin 500mg QD Take 1 tablet by mouth daily. [facility] nystatin (NYSTOP) 100,000 unit/gram topical powder 2019-06 00:00:00 Yes Janel infection Apply to affected area 4 times d aily. [facility] tropicamide (MYDRIACYL) 0.5 % ophthalmic solution 2019-07-18 00:00:00 2020-01-18 23:59:00 No Type 2 diabetes jakc itus without complication, without long-term current use of insulin 1[drp] Instill 1 Drop in each eye once as needed for up to 1 dose (for poor retina scan image). [facility] atorvastatin (LIPITOR) 40 mg tablet 2019-07-18 00:00:0 0 2019-08-17 23:59:00 No Type 2 diabetes mellitus wit hout complication, without long-term current use of insulin 40mg Take 1 tablet by mouth at bedtime nightly for 3 0 days. [facility] simvastatin (ZOCOR) 20 mg tablet 2019-01-14 00:00:00 2019-06 00:00:00 No Type 2 diabetes mellitus without complication, without long-term current use of insulin 20mg Take 1 tablet by mouth at bedtime nightly. [facility] lisinopril (PRINIVIL) 10 mg tablet 2018-06-21 00:00:00 202 00:00:00 No Essential hypertension 10mg QD Take 1 tablet by mouth ricardo y. [facility] metFORMIN (GLUCOPHAGE) 500 mg tablet 2018-06-21 00:00: 00 2019-07-18 00:00:00 No Type 2 diabetes mellitus wit hout complication, without long-term current use of insulin 500mg QD Take 1 tablet by mouth daily. [facility] blood glucose (PRECISION XTRA TEST STRIPS) test strips 2018-02-12 00:00:00 Yes Type 2 diabetes mellitus wit hout complication, without long-term current use of insulin Use 2 times weekly ( once per day on Thu,) to test blood sugar. [facility] lancets 28 gauge 2018-02-12 00:00:00 Yes Type 2 diabetes mellitus without complication, without long-term current use of insulin Use 2 times weekly as directed. [facility] blood glucose test strips 2017-07-27 00:00:00 Yes Type 2 diabetes mellitus without complication, without long-term current use of insulin 2 times weekly Use 2 times weekly (once per day on Thu,) to test blood sugar. [facility] blood glucose meter (PRECISION XTRA GLUCOMETER) 2017-06-12 00:00:00 2019-11-24 00:00:00 No Type 2 diabetes jack itus without complication, without long-term current use of insulin Use as directed.. [facility] Miscellaneous Medical Supply (BLOOD PRESSURE CUFF) Misc 2016-07-11 00:00:00 Yes Essential hypertension by Mis.(Non-Drug; Combo Route) route. [facility] Immunizations Ordered Immunization Name Filled Immunization Name Date Status Comments Source Influenza, Injectable, Quadrivalent, Preservative Free 2019-07-18 00:00:00 Completed [facility] Zoster Vaccine (Shingrix) 2019-07-18 00:00:00 Completed [facility] PCV 13 (Pnuemococcal Conjugated 13 Valent) 2019-07-18 00:0 0:00 Completed [facility] Influenza, Vaccine <FLUCELVAX>(Preservative-Free) 2018-06-21 00:00:00 Completed [facility] Influenza Vaccine 2015-05-28 00:00:00 Completed [facility] Tdap Tetanus, diphtheria, acellular pertussis Vaccine 2015-02-27 00:00:00 Completed [facility] PPV 23 Pneumococcal Polysaccaride 2015-02-27 00:00:00 Comp leted [facility] Vital Signs Vital Name Observation Time Observation Value Comments Source Weight 2020-01-19 10:54:00 180 [lb_av] [facility] BMI (Body Mass Index) 2020-01-19 10:54:00 27.4 kg/m2 [facility] Systolic blood pressure 2019-11-29 08:33:00 118 mm[Hg] [facility] Diastolic blood pressure 2019-11-29 08:33:00 71 mm[Hg] [facility] Heart rate 2019-11-29 08:33:00 59 /min [facility] Body temperature 2019-11-29 08:33:00 37.22 Carole Yeimy is [facility] Respiratory rate 2019-11-29 08:33:00 18 /min Yeimy is [facility] Body height 2019-11-29 08:33:00 167.6 cm [facility] Body weight 2019-11-29 08:33:00 74.934 kg [facility] BMI 2019-11-29 08:33:00 26.66 kg/m2 [facility] Procedures Procedure Date / Time Performed Performing Clinician [facility] e Computed tomography of abdomen and pelvis with contrast 00:00:00 [facility] Testicular ultrasound 2020-01-19 00:00:00 [facility] Dup-scan artl hoda abdl/pel/scrot&/RPR orgn lmt 2020-01-19 00:00: 00 [facility] FECAL OCCULT BLOOD 2019-12-06 09:26:00 Rigoberto Gutierrez [facility] DUPLEX DOPPLER ABD/PEL VASCULAR STUDY, COMPLETE 2019-12-01 1 2:17:33 Rigoberto Gutierrez [facility] U/S SCROTUM 2019-12-01 12:17:33 Rigoberto Gutierrez [facility] OPHTHALMOLOGY RETINAL SCAN 2019-11-29 09:55:[address] [facility] URINE DRUG SCREEN 2019-09-27 10:40:00 Fe Pruett [facility] LIPID PROFILE 2019-09-27 09:30:00 Brock Lopez [facility] THYROID STIMULATING HORMONE (TSH) 2019-09-27 09:30:00 Chago Lopez [facility] COMPREHENSIVE METABOLIC PANEL 2019-09-27 09:30:00 Trinity Lopez [facility] HEMOGLOBIN A1C 2019-09-27 09:30:00 Brock Lopez [facility] SYPHILIS SCREEN FOR INFECTION 2019-09-27 09:30:00 Trinity Lopez [facility] HIV AG/AB COMBO ROUTINE SCREENING 2019-09-27 09:29:00 Chago Lopez [facility] DIABETIC FOOT EXAM 2019-07-18 15:01:08 Fe Pruett [facility] Planned Activity Planned Date Details Comments Source Future Scheduled Test 2020-12-05 00:00:00 Screening for maria e gnant neoplasm of colon (procedure) [code = 404965073] [facility] Scheduled Test 2020-11-28 00:00:00 DM Retinal Exam (Y early) [code = DM Retinal Exam (Yearly)] [facility] Scheduled Test 2020-09-26 00:00:00 Hemoglobin A1c dara surement (procedure) [code = 77481986] [facility] Scheduled Test 2020-07-18 00:00:00 DM Foot Exam (Year ly) [code = DM Foot Exam (Yearly)] [facility] Scheduled Test 2020-02-23 00:00:00 IMM Influenza Seas onal Feb to July (>/= 19 yrs) [code = IMM Influenza Seasonal Feb to July (>/= 19 yrs)] [facility] Instructions [facility] Encounters Start Date/Time End Date/Time Encounter Type Admission Type Attendi [facility] Care Department Encounter ID Source 2020-01-19 10:55:00 2020-01-19 14:00:00 Departed Emergency Room CYNTHIA CANADA [facility] [id number] [facility] I Petros Self [facility] 2019-12-29 00:00:00 2019-12-29 00:00:00 Outpatient [facility] [id number] [facility] 2019-12-29 00:00:00 2019-12-29 00:00:00 Outpatient [facility] [id number] [facility] 2019-12-20 00:00:00 2019-12-20 00:00:00 Outpatient [facility] [id number] [facility] 2019-12-06 09:16:43 2019-12-06 09:16:43 Outpatient [facility] [id number] [facility] 2019-12-01 11:29:46 2019-12-01 11:29:46 Outpatient [facility] [id number] [facility] 2019-11-29 09:48:34 2019-11-29 09:48:34 Outpatient [facility] [id number] [facility] 2019-11-29 08:36:28 2019-11-29 08:36:28 Outpatient [facility] [id number] [facility] 2019-11-24 07:52:58 2019-11-24 07:52:58 Outpatient [facility] [id number] [facility] 2019-11-18 00:00:00 2019-11-18 00:00:00 Outpatient [facility] [id number] [facility] 2019-11-16 07:33:40 2019-11-16 07:33:40 Outpatient [facility] [id number] [facility] 2019-09-27 09:19:42 2019-09-27 09:19:42 Outpatient [facility] [id number] [facility] 2019-09-27 00:00:00 2019-09-27 00:00:00 Outpatient [facility] [id number] [facility] 2019-09-27 00:00:00 2019-09-27 00:00:00 Outpatient [facility] [id number] [facility] 2019-09-27 00:00:00 2019-09-27 00:00:00 Outpatient [facility] [id number] [facility] 2019-09-26 07:03:29 2019-09-26 07:03:29 Outpatient [facility] [id number] [facility] 2019-09-12 06:49:38 2019-09-12 06:49:38 Outpatient [facility] [id number] [facility] 2019-09-12 00:00:00 2019-09-12 00:00:00 Outpatient [facility] [id number] [facility] 2019-07-18 14:42:56 2019-07-18 14:42:56 Outpatient [facility] [id number] [facility] 2019-07-18 00:00:00 2019-07-18 00:00:00 Outpatient [facility] [id number] [facility] 2019-07-08 00:00:00 2019-07-08 00:00:00 Outpatient [facility] [id number] [facility] 2019-06-27 00:00:00 2019-06-27 00:00:00 Outpatient [facility] [id number] [facility] 2019-03-31 00:00:00 2019-03-31 00:00:00 Outpatient [facility] [id number] [facility] 2019-01-14 10:40:40 2019-01-14 10:40:40 Outpatient [facility] [id number] [facility] 2019-01-14 08:49:09 2019-01-14 08:49:09 Outpatient [facility] [id number] [facility] 2019-01-14 00:00:00 2019-01-14 00:00:00 Outpatient [facility] [id number] [facility] Results Test Description Test Time Test Comments Results Result Comments Source CT ABDOMEN/PELVIS W 2020-02-03 18:00:00 [place] [address] Patient Name: EMILIANO GUTIÉRREZ MR #: [id number] : 1950 Age/Sex: 69/M Req #: [id number] Adm Physician: Ordered by: CYNTHIA CANADA DO Report #: [id number] Location: ER Room/Bed: Procedure: [id number] CT/CT ABDOMEN/PELVIS W Exam Date: 02/03/20 Exam Time: 1730 REPORT STATUS: Signed EXAM: CT Abdomen and Pelvis WITH contrast INDICATION: Scrotal cellulitis. COMPARISON: Same day ultrasound of the scrotum. CT abdomen/pelvis on 01/19/2020. TECHNIQUE: Abdomen and pelvis were scanned utilizing a multidetector helical scanner from the lung base to the pubic symphysis after administration of IV contrast. Coronal and sagittal reformations were obtained. Routine protocol was performed. Scan was performed when during portal venous phase. IV CONTRAST: 100 mL of Isovue 370 ORAL CONTRAST: None COMPLICATIONS: None RADIATION DOSE: Total DLP: 361.34 mGy*cm Estimated effective dose: (DLP x 0.015 x size factor) mSv CTDIvol has been reviewed. It is below the limits set by the Radiation Protocol Committee (RPC). Dose modulation, iterative reconstruction, and/or weight based adjustment of the mA/kV was utilized to reduce the radiation dose to as low as reasonably achievable. FINDINGS: LINES and TUBES: None. LOWER THORAX: Atherosclerotic calcification of the coronary vessels. Lung bases are clear. HEPATOBILIARY: The liver is diffuse hypodense compared to the spleen, consistent with diffuse hepatic diffuse hepatic steatosis. No focal hepatic lesions. No biliary ductal dilation. GALLBLADDER: No radio-opaque stones or sludge. No wall thickening. SPLEEN: No splenomegaly. PANCREAS: No focal masses or ductal dilatation. ADRENALS: No adrenal nodules KIDNEYS/URETERS: Kidneys enhance symmetrically. No hydronephrosis. No cystic or solid mass lesions. No stones. GI TRACT: No abnormal distention, wall thickening, or evidence of bowel obstruction. Appendix is normal. PELVIC ORGANS/BLADDER: Dystrophic calcification of the prostate gland. Pelvic organs are otherwise unremarkable. LYMPH NODES: No lymphadenopathy. VESSELS: Scattered mild arterial vascular calcifications. PERITONEUM / RETROPERITONEUM: No free air or fluid. BONES: There are degenerative changes in the spine. SOFT TISSUES: There is heterogeneity of the right scrotum with surrounding soft tissue edema, better visualized on same day scrotal ultrasound. IMPRESSION: 1. Heterogeneity of the right scrotum with surrounding soft tissue edema, better visualized on same day scrotal ultrasound. This may represent postoperative changes. However, urology follow- up is recommended to further evaluate these findings. 2. No acute abdominopelvic abnormality identified. 3. Hepatic steatosis. Signed by: David Gamboa MD on 02/03/2020 6:37 PM Dictated By: DAVID GAMBOA MD E lectronically Signed By: DAVID GAMBOA MD on 02/03/201836 Transcribed By: ANNETTE on 02/03/201836 COPY TO: CYNTHIA CANADA DO US TESTICULAR DOPPLER LTD 2020-02-03 17:54:00 [place] [address] Patient Name: EMILIANO GUTIÉRREZ MR #: [id number] : 1950 Age/Sex: 69/M Req #: [id number] Adm Physician: Ordered by: CYNTHIA CANADA DO Report #: [id number] Location: ER Room/Bed: Procedure: [id number] US/US TESTICULAR DOPPLER LTD Exam Date: 02/03/20 Exam Time: 1718 REPORT STATUS: Signed EXAM: Scrotal Ultrasound with Duplex INDICATION: Scrotal pain and swelling. Patient had history of right testicular hydrocele surgery on 01/25/2020. COMPARISON: None TECHNIQUE: Transverse and longitudinal images were obtained of the scrotum with grayscale imaging, color Doppler and spectral waveform analysis. FINDINGS: Right testis: Size: 4.1 x 2.5 x 2.5 cm, normal in size. Echogenicity: Normal Mass/Cysts: None Left testis: Size: 4.3 x 2.2 x 3.0 cm, normal in size. Echogenicity: Normal Mass/Cysts: None Epididymis: The right epididymis measures 1.2 x 0.6 x 0.9 cm. The left epididymis measures 1.3 x 0.7 x 0.7 cm. Appearance: Normal in size without increased vascularity. Mass/Cysts: There is a 0.3 cm cyst in left epididymal head. Extratesticular: Masses: There is a convex, poorly defined heterogeneous mass superior to the right testicle. Hydrocele: There is a small hydrocele in the left. Varicocele: Left varicocele. Doppler: Normal arterial flow to both testes and symmetrical flow on color Doppler evaluation is seen. No evidence of testicular torsion. IMPRESSION: 1. No evidence of testicular torsion. 2. Complex poorly defined heterogeneous mass superior to the right testicle which may represent postoperative changes. However, urology follow-up is recommended to further evaluate these findings. Signed by: David Gamboa MD on 02/03/2020 5:59 PM Dictated By: DAVID GAMBOA MD 58 Transcribed By: ANNETTE on 02/03/201758 COPY TO: CYNTHIA CANADA DO CHEST 2 VIEWS 2020-01-20 15:31:00 [place] [address] Patient Name: EMILIANO GUTIÉRREZ MR #: [id number] : 1950 Age/Sex: 69/M Req #: [id number] Adm Physician: Ordered by: PETER ULRICH MD Report #: [id number] Location: OR Room/Bed: Procedure: [id number] DX/CHEST 2 VIEWS Exam Date: 01/20/20 Exam [...] 3:31 PM Dictated By: ZAID LONDON MD 30 Transcribed By: ANNETTE on 01/20/201530 COPY TO: PETER ULRICH MD CT ABDOMEN/PELVIS W 2020-01-19 12:16:00 [place] [address] Patient Name: EMILIANO GUTIÉRREZ MR #: [id number] : 1950 Age/Sex: 69/M Req #: [id number] Adm Physician: Ordered by: CYNTHIA CANADA DO Report #: [id number] Location: ER Room/Bed: Procedure: [id number] CT/CT ABDOMEN/PELVIS W Exam Date: 01/19/20 Exam [...] DO US TESTICULAR DOPPLER LTD 2020-01-19 12:04:00 [place] [address] Patient Name: EMILIANO GUTIÉRREZ MR #: [id number] : 1950 Age/Sex: 69/M Req #: [id number] Adm Physician: Ordered by: CYNTHIA CANADA DO Report #: [id number] Location: ER Room/Bed: Procedure: [id number] US/US TESTICULAR DOPPLER LTD Exam Date: 01/19/20 [...] CUETO MD 06 Transcribed By: ANNETTE on 01/19/201206 COPY TO: CYNTHIA CANADA DO TESTICULAR 2020-01-19 12:04:00 [place] [address] Patient Name: EMILIANO GUTIÉRREZ MR #: [id number] : 1950 Age/Sex: 69/M Req #: [id number] Adm Physician: Ordered by: CYNTHIA CANADA DO Report #: [id number] Location: Room/Bed: Procedure: [id number] US/US TESTICULAR Exam Date: 01/19/20 Exam Time: [...] CUETO MD 06 Transcribed By: ANNETTE on 01/19/201206 COPY TO: CYNTHIA CANADA DO Urine color determination 2020-01-19 12:00:00 Test Item Urine Color (test code = 5778-6) YELLOW [facility]LLOW [facility] [id number] 12:00:00* Test Item Value Reference Range Interpretation Comments Urine Clarity (test code = 32509-5) [facility]AR [facility] by Test strip 2020-01-19 12:00:00* Test Item Value Reference Range Interpretation Comments Urine Specific [place] (test code = 5811-5) 1.020 1.010-1.02 5 [facility] measurement by automated test [id number] 12:00:00* Test Item Value Reference Range Interpretation Comments Urine pH (test code = 97336-8) 5.5 5-7 [facility] leukocyte esterase detection by [id number] 12:00:00* Test Item Value Reference Range Interpretation Comments Urine Leukocyte Esterase (test code = 5799-2) NEGATIVE NEGATIVE [facility] nitrite [id number] 12:00:00* Test Item Value Reference Range Interpretation Comments Urine Nitrite (test code = 12539-2) NEGATIVE NEGATIVE [facility] protein measurement by test strip (mass/volume)2020-01-19 12:00:00* Test Item Value Reference Range Interpretation Comments Urine Protein (test code = 5804-0) NEGATIVE NEGATIVE [facility] glucose [id number] 12:00:00* Test Item Value Reference Range Interpretation Comments Urine Glucose (UA) (test code = 2349-9) NEGATIVE NEGATIVE [facility] ketones detection by automated test [id number] 12:00:00* Test Item Value Reference Range Interpretation Comments Urine Ketones (test code = 09969-2) NEGATIVE NEGATIVE [facility] urobilinogen measurement by test strip (mass/volume)2020-01-19 12:00:00* Test Item Value Reference Range Interpretation Comments Urine Urobilinogen (test code = 32722-9) 0.2 0.2-1 [facility] total bilirubin measurement (mass/volume)2020-01-19 12:00:00* Test Item Value Reference Range Interpretation Comments Urine Bilirubin (test code = 1978-6) NEGATIVE NEGATIVE [facility] erythrocytes [id number] 12:00:00* Test Item Value Reference Range Interpretation Comments Urine Blood (test code = 79030-4) NEGATIVE NEGATIVE [facility] sediment leukocyte count by microscopy (number/high power field)2020-01-19 12:00:00* Test Item Value Reference Range Interpretation Comments Urine WBC (test code = 5821-4) 0-5 0-5 [facility] detection in urine sediment by light [id number] 12:00:00* Test Item Value Reference Range Interpretation Comments Urine RBC (test code = 91022-2) 0-5 0-5 [facility] detection in urine sediment by light [id number] 12:00:00* Test Item Value Reference Range Interpretation Comments Urine Bacteria (test code = 68187-3) RARE NONE [facility]pit[facility] cells detection in urine sediment by light [id number] 12:00:00* Test Item Value Reference Range Interpretation Comments Urine Epithelial Cells (test code = 25915-3) FEW NONE [facility] leukocytes automated count (number/volume)2020-01-19 11:16:00* Test Item Value Reference Range Interpretation Comments White Blood Count (test code = 6690-2) 7.89 4.8-10.8 [facility] erythrocytes automated count (number/volume)2020-01-19 11:16:00* Test Item Value Reference Range Interpretation Comments Red Blood Count (test code = 789-8) 4.12 4.3-5.7 [facility] hemoglobin measurement (moles/volume)2020-01-19 11:16:00* Test Item Value Reference Range Interpretation Comments Hemoglobin (test code = 43106-2) 13.4 14.0-18.0 [facility] blood hematocrit (volume fraction)2020-01-19 11:16:00* Test Item Value Reference Range Interpretation Comments Hematocrit (test code = 4544-3) 38.9 38.2-49.6 [facility] erythrocyte mean corpuscular zwxrrv0247-09-69 11:16:00* Test Item Value Reference Range Interpretation Comments Mean Corpuscular Volume (test code = 787-2) 94.4 81-99 [facility] eryth[facility] mean corpuscular hemoglobin (mass per erythrocyte)2020-01-19 11:16:00* Test Item Value Reference Range Interpretation Comments Mean Corpuscular Hemoglobin (test code = 785-6) 32.5 28-32 [facility]manAutom[facility] erythrocyte mean corpuscular hemoglobin concentration measurement (mass/volume)2020-01-19 11:16:00* Test Item Value Reference Range Interpretation Comments Mean Corpuscular Hemoglobin Concent (test code = 786-4) 34.4 31-35 [facility]manRDW AloYr-Jdz1417-02-27 11:16:00* Test Item Value Reference Range Interpretation Comments Red Cell Distribution Width (test code = 04611-1) 12.9 11.7 -14.4 [facility]manAutomated blood platelet count (count/volume)2020-01-19 11:16:00* Test Item Value Reference Range Interpretation Comments Platelet Count (test code = 777-3) 239 140-360 [facility]manAutom[facility] blood segmented neutrophil count as percentage of total bzezhsbziw3727-16-40 11:16:00* Test Item Value Reference Range Interpretation Comments Neutrophils (%) (Auto) (test code = 73590-7) 57.4 38.7-80.0 [facility]manAutomated blood lymphocyte count as percentage ot total gerucjytka9348-60-04 11:16:00* Test Item Value Reference Range Interpretation Comments Lymphocytes (%) (Auto) (test code = 736-9) 31.8 18.0-39.1 [facility]Autom[facility] blood monocyte count as percentage of total qhnhewrsrv7422-97-19 11:16:00* Test Item Value Reference Range Interpretation Comments Monocytes (%) (Auto) (test code = 5905-5) 8.0 4.4-11.3 [facility]Autom[facility] blood eosinophil count as percentage of total vpabenasxc7402-38-23 11:16:00* Test Item Value Reference Range Interpretation Comments Eosinophils (%) (Auto) (test code = 713-8) 1.9 0.0-6.0 [facility]manAutom[facility] blood basophil count as percentage of total fitokgwlvu1099-61-21 11:16:00* Test Item Value Reference Range Interpretation Comments Basophils (%) (Auto) (test code = 706-2) 0.8 0.0-1.0 [facility]manFluoroscopic procedure less than one hour snjdwmlu7287-48-80 11:16:00* Test Item Value Reference Range Interpretation Comments IM GRANULOCYTES % (test code = IM GRANULOCYTES %) 0.1 0.0- 1.0 [facility] blood neutrophil count 2020-01-19 11:16:00* Test Item Value Reference Range Interpretation Comments Neutrophils # (Auto) (test code = 751-8) 4.5 2.1-6.9 [facility]manBlood lymphocytes count (number/volume) 2020-01-19 11:16:00* Test Item Value Reference Range Interpretation Comments Lymphocytes # (Auto) (test code = 41135-5) 2.5 1.0-3.2 [facility]manBlood monocytes automated count (number/volume)2020-01-19 11:16:00* Test Item Value Reference Range Interpretation Comments Monocytes # (Auto) (test code = 742-7) 0.6 0.2-0.8 [facility]manAutom[facility] blood eosinophil count 2020-01-19 11:16:00* Test Item Value Reference Range Interpretation Comments Eosinophils # (Auto) (test code = 711-2) 0.2 0.0-0.4 [facility]manAutomated blood basophil count (count/volume)2020-01-19 11:16:00* Test Item Value Reference Range Interpretation Comments Basophils # (Auto) (test code = 704-7) 0.1 0.0-0.1 [facility]manFluoroscopic procedure less than one hour hsrswpaa4192-58-26 11:16:00* Test Item Value Reference Range Interpretation Comments Absolute Immature Granulocyte (auto (yolanda t code = Absolute Immature Granulocyte (auto) 0.01 0-0.1 [facility] plasma sodium measurement (moles/volume)2020-01-19 11:16:00* Test Item Value Reference Range Interpretation Comments Sodium Level (test code = 2951-2) 140 136-145 [facility]viewerum or plasma potassium measurement (moles/volume)2020-01-19 11:16:00* Test Item Value Reference Range Interpretation Comments Potassium Level (test code = 2823-3) 4.0 3.5-5.1 [facility]viewerum or plasma chloride measurement (moles/volume)2020-01-19 11:16:00* Test Item Value Reference Range Interpretation Comments Chloride Level (test code = 2075-0) 108 98-107 [facility]viewerum or plasma carbon dioxide, total measurement (moles/volume)2020-01-19 11:16:00* Test Item Value Reference Range Interpretation Comments Carbon Dioxide Level (test code = 2028-9) 22 22-29 [facility]viewerum or plasma anion luz4742-66-89 11:16:00* Test Item Value Reference Range Interpretation Comments Anion Gap (test code = 00560-1) 14.0 8-16 [facility]view[facility]um or plasma urea nitrogen measurement (mass/volume)2020-01-19 11:16:00* Test Item Value Reference Range Interpretation Comments Blood Urea Nitrogen (test code = 3094-0) 20 7-26 [facility]viewerum or plasma creatinine measurement (mass/volume)2020-01-19 11:16:00* Test Item Value Reference Range Interpretation Comments Creatinine (test code = 2160-0) 1.08 0.72-1.25 [facility]viewerum or plasma urea nitrogen/creatinine mass wwzxo4729-91-29 11:16:00* Test Item Value Reference Range Interpretation Comments BUN/Creatinine Ratio (test code = 3097-3) 19 6- [facility]manEstimated glomerular filtration rate (GFR) cxkhgnjimujpg7571-50-75 11:16:00* Test Item Value Reference Range Interpretation Comments Estimat Glomerular Filtration Rate (test code = 126110199) > 60 >60 Ranges were taken from the National Kidney Disease Education Program and the [facility] Kidney Foundation literature.Reference ranges:60 or greater: Jiqycx67-35 ( for 3 consecutive months): Chronic kidney disease 15 or less: Kidney failureTexas Health KaufmanGlucose xbsjmeiajbt3984-42-64 11:16:00* Test Item Value Reference Range Interpretation Comments Glucose Level (test code = PEZ8070) 117 74-118 [facility]viewerum or plasma calcium measurement (mass/volume)2020-01-19 11:16:00* Test Item Value Reference Range Interpretation Comments Calcium Level (test code = 64846-2) 9.3 8.4-10.2 [facility]viewerum or plasma total bilirubin measurement (mass/volume)2020-01-19 11:16:00* Test Item Value Reference Range Interpretation Comments Total Bilirubin (test code = 1975-2) 0.4 0.2-1.2 [facility]manFluoroscopic procedure less than one hour nsezygta0348-99-06 11:16:00* Test Item Value Reference Range Interpretation Comments Aspartate Amino Transf (AST/SGOT) (test code = Aspartate Amino Transf (AST/SGOT)) 16 5-34 [facility]viewerum or plasma alanine aminotransferase measurement (enzymatic activity/volume)2020-01-19 11:16:00* Test Item Value Reference Range Interpretation Comments Alanine Aminotransferase (ALT/SGPT) (test code = 1742-6) 14 0-55 [facility]viewerum or plasma protein measurement (mass/volume)2020-01-19 11:16:00* Test Item Value Reference Range Interpretation Comments Total Protein (test code = 2885-2) 7.6 6.5-8.1 [facility]viewerum or plasma albumin measurement (mass/volume)2020-01-19 11:16:00* Test Item Value Reference Range Interpretation Comments Albumin (test code = 1751-7) 4.0 3.5-5.0 [facility]manPlasma globulin measurement (mass/volume) 2020-01-19 11:16:00* Test Item Value Reference Range Interpretation Comments Globulin (test code = 06128-0) 3.6 2.3-3.5 [facility]viewerum or plasma albumin/globulin mass ukyer6650-26-43 11:16:00* Test Item Value Reference Range Interpretation Comments Albumin/Globulin Ratio (test code = 1759-0) 1.1 0.8-2.0 [facility]viewerum or plasma alkaline phosphatase measurement (enzymatic activity/volume)2020-01-19 11:16:00* Test Item Value Reference Range Interpretation Comments Alkaline Phosphatase (test code = 6768-6) 112 40-150 [facility]- DUP AB/PEL/SC [id number] 17:07:00 Name: EMILIANO GUTIÉRREZ [facility] : 1950 Age/S: 69 / M [address] [facility] [id number] [place] [address] Phys: Frantz Centeno MD Acct: [id number] Di s Date: Status: REG ER PHONE #: Exam Date: 12/12/2019 1623 FAX #: Reason: TESTICLE PAIN EXAMS: CPT CODE: [id number] DUP AB/PEL/SC COMP 04902 REASON FOR EXAM: TESTICLE PAIN EXAM ORDER DATE: 12/12/2019 3:47 PM Ordering: Maninder Centeno MD Attending:Frantz Centeno MD Location:[facility] PROCEDURE: - US SCROTUM AND CNTS, - [...] Frantz Centeno MD Technologist: Williams Urias Tr [facility] Date/Time: 12/12/2019 (170) Luis E Orig Print D/ T: S: 12/12/2019 (4768) Probe: PAGE 1 Signed Report - US SCROTUM AND CNTS 2019-12-12 17:07:00 Name: EMILIANO GUTIÉRREZ [facility] : 1950 Age/S: 69 / M [address] [facility] Unit #: [id number] Loc: [place] [address] Phys: Frantz Centeno MD Acct: [id number] Dis Date: Status: REG ER PHONE #: [phone] Exam Date: 12/12/2019 1626 FAX #: [phone] Reason: TESTICLE PAIN EXAMS: CPT CODE: [id number] US SCROTUM AND CNTS 84975 REASON FOR EXAM: TESTICLE PAIN EXAM ORDER DATE: 12/12/2019 3:47 PM Ordering: Frantz Centeno MD Attending:Frantz Centeno MD Location:[facility] PROCEDURE: - US SCROTUM AND CNTS, - [...] CC: Frantz Centeno MD Technologist: Williams Urias Trnnmb Date/Time: 12/12/2019 (170) tPELONL Orig Print D/T: S: 12/12/2019 (5631) Probe: PAGE 1 Signed Report URINALYSIS [id number] 16:36:00* Test Item Value Reference Range Interpretation [...] FEW #/LPF FEW Urine Source? Clean CatchURINALYSIS [id number] 16:34:00* Test Item Value Reference Range Interpretation [...] HPF NONE Urine Source? Clean CatchBASIC METABOLIC [id number] 16:32:00* Test Item Value Reference Range Interpretation [...] CA) 8.5 mg/dL 8.5-10.1 N BASIC METABOLIC [id number] 16:27:00* Test Item Value Reference Range Interpretation [...] CA) 8.5 mg/dL 8.5-10.1 N CBC W/O [id number] 16:07:00* Test Item Value Reference Range Interpretation [...] = MPV) 8.9 fL 6.7-11.0 N U/S PPWDFJE3370-79-71 14:10:37IMPRESSION: 1. No evidence of testicular torsion. [...] rep ort.Signed By: Emma Pa, 12/01/2019 2:10 PMMult[facility]are [facility] HospitalDUPLEX DOPPLER ABD/PEL VASCULAR STUDY, [id number] 14:10:37IMPRESSION: 1. No evidence of testicular torsion. [...] rep ort.Signed By: Emma Pa, 12/01/2019 2:10 PMMulticare Tacoma General HospitalOPHTHALMOLOGY RETINAL [id number] 01:17:47* Test Item Value Reference Range Interpretation Comments RETINAL SCAN-FINAL RESULT (test code = 51836) NORMAL Right Diabetic Retinopathy (test code = 904584) None Right Macular Edema (test code = 90298) None Right Other Suspected Conditions (test code = 72164) None Right Image Quality (test code = 66956) Gradable Image Left Diabetic Retinopathy (test code = 69726) None Left Macular Edema (test code = 97281) None Left Other Suspected Conditions (test code = 73560) None Left Image Quality (test code = 20126) Gradable Image AMPARO (test code = AMPARO) Retinal Study Result for IRMA GUTIÉRREZ, ramona 69 y/o, M (: 1950, )presented to [facility] on 11-29-2019 for a retinal imaging study of the left and right eyes. Based on the findings of the study, the following is recommended for EMILIANO Ray Scan: Please advise the patient to return for another scan in 1 year. Interpreting Provider's Comments: No comments provided Right eye findings: Normal Result. Negative for Diabetic Retinopathy. Left eye findings: Normal Result. Negative for Diabetic Retinopathy. This result was electronically signed by Joseph Thorne MD, , Taxonomy: [id number] on 11-29-2019 06:17:47 [facility] time. NOTE: Any pathology noted on this diabetic retinal evaluation should be confirmed by an appropriate ophthalmic examination. [facility] for Fpozyjzrc8693-14-51 14:36:00* Test Item Value Reference Range Interpretation Comments TPA (test code = 25015-5) Negative Negative, Equivocal Final Report (test code = 44608-4) Negative Negative Lab Interpretation (test code = 01718-8) Normal [facility] HospitalHemoglobin [id number] 13:50:00* Test Item Value Reference Range Interpretation Comments Hemoglobin A1c (test code = 4548-4) 7.0 % 4.3-6.1 H Estimated Average Glucose (test code = 48606593) 154 mg/dL 70-11 0 H Lab Interpretation (test code = 28544-1) Abnormal [facility] HospitalHIV-1/HIV-2 Routine Yppfymnuc4061-81-45 13:31:00* Test Item Value Reference Range Interpretation Comments HIV Ag/Ab Combo (test code = 91230-1) Negative Negative Lab Interpretation (test code = 21061-2) Normal [facility] HospitalUrine Drug Pukyhb1942-12-67 13:18:00* Test Item Value Reference Range Interpretation Comments Opiate, Ur (test code = 97668-7) Negative Negative Calibrated Standard: Morphine Positive if urine level > or = 300 ng/dL Amphetamine (test code = 67285-5) Negative Negative Calibrated Standard: D- Methamphetamine Positive if urine level > or = 1000 ng/mL Barbiturate (test code = 36820-1) Negative Negative Calibrated Standard: Secobarbital Positive if urine level is > or = 200 ng/mL Benzodiazepine (test code = 10969-6) Negative Negative Calibrated Standard: Lormethazepam Positive if urine level is > or = 200 ng/mL Cocaine (test code = 77262-8) Negative Negative Calibrated Standard: Benzoylecgonine Positive if urine level > or = 300 ng/dL PCP (test code = 19213-8) Negative Negative C alibrated Standard: Phencyclidine Positive if urine level > or = 25 ng/dL Cannabinoid (test code = 33916-1) Negative Negative Calibrated Standard: 11 nor-delta(9)-THC carboxylic acid Positive if urine level > or = 50 ng/mL Lab Interpretation (test code = 00693-1) Normal [facility] HospitalMzvttzHPW4667-92-00 13:13:00* Test Item Value Reference Range Interpretation Comments TSH (test code = 71430305) 1.61 0.45- 5.33 uIU/mL Lab Interpretation (test code = 86682-4) Normal [facility] HospitalLipid Watdmks3452-57-44 10:39:00* Test Item Value Reference Range Interpretation Comments Cholesterol (test code = 2093-3) 144.0 mg/dL <=200.0 Desirable: < 200.0 mg/dLBorderline: 200 - 240 mg/dLHigh Risk: > 240 mg/dL Triglyceride (test code = 02530003) 94 mg/dL <150 Normal: < 150.0 mg/dL Borderline: 150-199 mg/dL High: 200-499 mg/dL Very High: >= 500 mg/dL HDL (test code = 2085-9) 30.0 mg/dL See Reference Range Narrative . Increased CHD Risk: < 40.0 mg/dL Decreased CHD Risk: > 60 mg/dL LDL (test code = 65500-3) 95 mg/dL <100 Op timal: < 100.0 mg/dLNear Optimal: 120-129 mg/dLBorderline: 130-159 mg/dLHigh: 160-189 mg/dLVery High: >=190 mg/dL Patient Fasting? (test code = 54269852) Yes [facility] Lkcar8749-67-28 10:30:00* Test Item Value Reference Range Interpretation Comments Sodium (test code = 2951-2) 139 mmol/L 136-145 Potassium (test code = 2823-3) 3.9 mmol/L 3.5-5.1 Chloride (test code = 2075-0) 104 mmol/L 98-107 CO2 (test code = 60604005) 27 mmol/L 21-31 Glucose (test code = 17272414) 161 mg/dL 70-110 H Calcium (test code = 13127929) 9.8 mg/dL 8.6-10.3 Urea Nitrogen (test code = 94525212) 16.0 mg/dL 7-25 Creatinine (test code = 65822710) 1.1 mg/dL 0.7-1.3 Alkaline Phosphatase (test code = 90383974) 106 U/L 34-104 H ALT (test code = 84036078) 11 U/L 7-52 AST (test code = 64661744) 13 U/L 13-39 Total Protein (test code = 2885-2) 7.6 g/dL 6-8.3 GFR, Estimated (test code = 56929066) 66 >=90 mL/min/1.73 m2 L Albumin (test code = 48134-2) 4.4 g/dL 4.2-5.5 Anion Gap (test code = 60473415) 8 mmol/L 5-16 Lab Interpretation (test code = 85828-3) Abnormal [facility] FOOT [id number] 15:01:08Fe Pruett, [facility] 07/18/2019 3:40 PMDiabetic Foot Exam was performed at 07/18/2019 3:40 PM. Right foot sensation is normal, right foot pulses are normal, right foot appearance is normal. Left foot sensation is normal, left foot pulses are normal, left foot appearance is normal. [facility]- XR CHEST 2 [id number] 07:44:00 FAX: Arcelia Mac NP [place]: St: REG Name: EMILIANO MCCARTHY [facility] : [birth year] Age/S: 68/M [address] [facility] Unit #: [id number] Loc: [place] [address] Phys: Arcelia Mac NP Acct: [id number] Dis Date: Status: REG ER PHONE #: [phone] Exam Date: 08/28/2018737 FAX #: [phone] Reason: cough EXAMS: CPT CODE: [id number] XR CHEST 2 V 21607 EXAM: Chest X-ray, 2 views; CLINICAL HISTORY: Cough for 2 to 3 weeks; FINDINGS: The lungs are clear, no infiltrates, no edema; no effusions; no pneumoth orax; normal cardiomediastinal silhouette. IMPRESSION: Normal chest x-ray. at 0765 Reported and signed by: Mesfin Buck M.D. CC: Arcelia Mac NP Technologist: Nithya SHOEMAKER(R); Estela Real(Tierra) Trnscrd Da te/Time/By: 08/28/2018 (0744) : By: Tristian Orig Print D/T: S: 08/28 (3137) PAGE 1 Signed Report
--- OUTSIDE RECORDS SUMMARY | 2020-02-03 19:16 | XMS REPORT | Clinical Summary ---
Author Author [facility] Organization [facility] Address Unknown Phone Unavailable Care Team Providers Care Supervisor Engraving Name Role Phone Caren Hernandez MD PCP Hiram Brown ResidentMD [phone] Allergies No Known Allergies Medications End [...] Type 2 diab etes mellitus 3:01 PM MACHINIST 2ND SHIFT without complication, without long-term current use of insulin after 02/02/2019 Results * Fecal Occult Blood (12/06/2019 9:26 AM CDT) Occult Blood Negative Negative [facility] Specimen Stool - Feces Performing Organization Address City/State/[facility] Ph one Number [facility] [address] [place] [address] * DUPLEX DOPPLER ABD/PEL VASCULAR STUDY, COMPLETE [...] y/o, M (: , ) presented to [facility] on 11-29-2019 for a retinal imaging [...] electronically signed Joseph Bella MD, , Taxonomy: [id number] on 11-29-2019 06:1 7:47 UTC time. NOTE: [...] Urine - Voided, urine Performing Organization Address [facility] one Number [facility] [address] [place] [address] * Syphilis Screen for Infection (09/27/2019 9:30 AM CDT) TPA Negative Negative, Equivocal [facility] Final Report Negative Negative [facility] Specimen Blood - Arm, left Performing Organization Address [facility] one Number [facility] [address] [place], [place] [id number] * Hemoglobin A1C (09/27/2019 9:30 AM CDT) Hemoglobin A1c 7.0 (H) 4.3 - 6.1 % [facility] Estimated 154 (H) 70 - 110 mg/dL [facility] Average Glucose LABORATORY Specimen Blood - Arm, left Performing Organization Address [facility] one Number [facility] [address] [place], [place] [id number] * Comprehensive Metabolic Panel (09/27/2019 9:30 AM CDT) Sodium 139 136 - 145 mmol/L [facility] Potassium 3.9 3.5 - 5.1 mmol/L [facility] Chloride 104 98 - 107 mmol/L [facility] CO2 27 21 - 31 mmol/L [facility] Glucose 161 (H) 70 - 110 mg/dL [facility] Calcium 9.8 8.6 - 10.3 mg/dL [facility] Urea Nitrogen 16.0 7.0 - 25.0 mg/dL [facility] Creatinine 1.1 0.7 - 1.3 mg/dL [facility] Alkaline 106 (H) 34 - 104 U/L [facility] Phosphatase LAB ALT 11 7 - 52 U/L [facility] AST 13 13 - 39 U/L [facility] Bilirubin, 1.0 0.2 - 1.2 mg/dL [facility] Total LAB Total Protein 7.6 6.0 - 8.3 g/dL [facility] GFR, Estimated 66 (L) >=90 mL/min/1.73 m2 [facility] IC LAB Albumin 4.4 4.2 - 5.5 g/dL [facility] Anion Gap 8 5 - 16 mmol/L [facility] Specimen Blood - Arm, left Performing Organization Address [facility] Ph one Number [facility] [place] [address] [facility] [address] [address] * TSH (09/27/2019 9:30 AM CDT) [facility] TSH 1.61 0.45 - 5.33 uIU/mL [facility] Specimen Blood - Arm, left Performing Organization Address [facility] Ph one Number [facility] [address] [place] [address] * Lipid Profile (09/27/2019 9:30 AM CDT) [facility] Cholesterol 144.0 <=200.0 mg/dL [facility] Comment: LAB Desirable: < 200.0 mg/dL Borderline: 200 - 240 mg/dL High Risk: > 240 mg/dL Triglyceride 94 <150 mg/dL [facility] Comment: LAB Normal: < 150.0 mg/dL Borderline: 150-199 mg/dL High: 200-499 mg/dL Very High: >= 500 mg/dL HDL 30.0 See Reference Range [facility] IC Comment: Narrative. mg/dL LAB Increased CHD Risk: < 40.0 mg/dL Decreased CHD Risk: > 60 mg/dL LDL 95 <100 mg/dL [facility] Comment: LAB Optimal: < 100.0 mg/dL Near Optimal: 120-129 mg/dL Borderline: 130-159 mg/dL High: 160-189 mg/dL Very High: >=190 mg/dL Patient Yes [facility] Fasting? LAB Specimen Blood - Arm, left Performing Organization Address City/[facility] Ph one Number [facility] [place] [address] [facility] [address] [place] [address] * HIV-1/HIV-2 Routine Screening (09/27/2019 9:29 AM CDT) HIV Ag/Ab Combo Negative Negative [facility] Specimen Blood - Arm, left Performing Organization Address [facility] Ph one Number [facility] [address] [place] [address] * DIABETIC FOOT EXAM (07/18/2019 3:01 PM MACHINIST 2ND SHIFT) Narrative Performed At [facility] 07/18/2019 3:40 PM Diabetic Foot Exam was performed at 06/26 3:40 PM. Right foot sensation is normal, right foot pulses are normal, right foot appearance is normal. Left foot sensation is nor mal, left foot pulses are normal, left foot appearance is normal. after 02/02/2019 Insurance Type Payer Benefit Subscriber ID Effective Phone Address Plan / Dates Group MEDICARE MEDICARE xxxxxxxxxxx 2013-P [id number] [place] [address] (Work)
--- NOTE | 2020-02-03 19:30 | NUR ---
Report to [facility]
[2020-02-03 21:51] VITALS: BP 136/64
--- NOTE | 2020-02-03 22:00 | NUR ---
Received pt via stretcher from ed. Pt awake a/o x4, denies discomfort at this time. No s/sx of acute distress noted. Pt orientated to room and policies. Bed in low and locked position call [place] and personal items within reach. Wound to scrotum open to air, no drainage noted. Will cont to mon
[2020-02-03] MEDS ORDERED: SODIUM CHLORIDE 0.9% 250ML 250 ML ONE (23:01)
[2020-02-03] MEDS ORDERED: TRAMADOL HCL 50 MG TAB PO PRN (23:15)
[2020-02-03] MEDS ORDERED: ACETAMINOPHEN/CODEINE 300MG - 30MG TAB PO PRN (23:15)
[2020-02-03] MEDS ORDERED: DEXTROSE 50% SYRINGE 50 ML IV PRN (23:15)
[2020-02-03 23:45] VITALS: BP 136/64
[2020-02-03 23:52] VITALS: BP 136/64
[2020-02-04] MEDS: PIPER-TAZ 3.375 GM 50 ML IV SCH ×4 (01:00→17:30)
[2020-02-04 04:00] VITALS: BP 118/76
[2020-02-04] MEDS: VANCOMYCIN 1GM/NS 250 ML 250 ML IV SCH ×2 (05:00→17:30)
[2020-02-04 06:07] LABS: BASOPHILS # (AUTO) 0.1 (0.0-0.1); BASOPHILS % 0.9 % (0.0-1.0); EOSINOPHILS # (AUTO) 0.2 (0.0-0.4); EOSINOPHILS % 2.6 % (0.0-6.0); HEMATOCRIT 31.8 % (38.2-49.6); HEMOGLOBIN 11.6 g/dL (14.0-18.0); LYMPHOCYTES % 24.7 % (18.0-39.1); MEAN CORPUSCULAR HEMOGLOBIN 35.7 pg (28-32); MEAN CORPUSCULAR HGB CONC 36.5 g/dL (31-35); MEAN CORPUSCULAR VOLUME 97.8 fL (81-99); MONOCYTES # (AUTO) 0.7 (0.2-0.8); MONOCYTES % 8.8 % (4.4-11.3); NEUTROPHILS % 62.6 % (38.7-80.0); PLATELET COUNT 216 x10e3/uL (140-360); RED BLOOD COUNT 3.25 x10e6/uL (4.3-5.7); RED CELL DISTRIBUTION WIDTH 12.5 % (11.7-14.4)
--- NOTE | 2020-02-04 06:29 | NUR ---
Call placed to [phone] Medellin consult for admitting dx. Spoke with Taniya
[2020-02-04 06:31] LABS: ANION GAP 17.3 mmol/L (8-16); BLOOD UREA NITROGEN 17 mg/dL (7-26); BUN/CREATININE RATIO 15 (6-25); CALCIUM 8.4 mg/dL (8.4-10.2); CARBON DIOXIDE 21 mmol/L (22-29); CHLORIDE 105 mmol/L (98-107); CREATININE, SERUM 1.15 mg/dL (0.72-1.25); EST GLOMERULAR FILTRATION RATE > 60 ML/MIN (60-); GLUCOSE 113 mg/dL (74-118); POTASSIUM 4.3 mmol/L (3.5-5.1); SODIUM 139 mmol/L (136-145)
[2020-02-04 08:00] VITALS: BP 126/69
[2020-02-04] MEDS: INSULIN LISPRO 100 UNIT/1 ML 3ML VIAL SQ SCH ×4 (08:18→21:40)
[2020-02-04] MEDS: LISINOPRIL 2.5 MG TAB PO SCH ×2 (08:23→17:30)
--- NOTE | 2020-02-04 09:55 | History and Physical ---
CHIEF COMPLAINT: Right scrotal swelling and pain, right scrotal redness, right scrotal infection. HISTORY OF PRESENT ILLNESS: The patient is a 69-year-old male, status post right hydrocele repair, that was done on January 25, 2020. The patient was subsequently discharged home. The patient came back now with right-sided area swelling and tender to touch, associated with redness. The patient came to the emergency room for evaluation. WBC was 11.2 with no left shift. However, the patient was in pain. The patient is admitted. IV antibiotic initiated. Consultation with Dr. Tramaine Medellin, his urologist obtained. The patient had abdominal and pelvic CT scan in the emergency room. The right scrotum surrounding soft tissue edema with swelling. The scrotal ultrasound was also done. The Doppler study did show no evidence of testicular torsion. There is complex newly declined heterogeneous mass superior to the right testicle, may represent postoperative changes. The patient is admitted for IV antibiotics. PAST MEDICAL HISTORY: On January 25, 2020, right hydrocele repair, baseline hypertension, diabetes type 2, dyslipidemia. SOCIAL HISTORY: The patient does not smoke or use alcohol. There are no regular drugs. ALLERGIES: NO KNOWN ALLERGIES. HOME MEDICATIONS: The patient is on Tylenol No. 3, Lipitor, lisinopril, metformin, tramadol, Bactrim. PHYSICAL EXAMINATION: VITAL SIGNS: T-max was 98.7, blood pressure 145/82, pulse rate 63, respirations 16. GENERAL: The patient is not in acute distress, awake. HEENT: Normocephalic and atraumatic. Anicteric. NECK: Supple grossly. PULMONARY: Diminished breath sounds without any wheezing or rales. CARDIOVASCULAR: S1 and S2. Regular rate and rhythm. ABDOMEN: Soft. EXTREMITIES: No cyanosis or edema. SCROTUM: Right scrotum surgical scar is clean. There is no drainage. There is swelling and hardness to the right testicular area. There is some redness as well. It is tender to touch. LABORATORY DATA: Sodium is 136, potassium 4, chloride 102, bicarb 18, BUN is 18, creatinine 1.2, glucose 123, lactic acid 1.0. WBC 11.3, hemoglobin 13, hematocrit 38.6, and platelets of 212. Serology; coronavirus disease 2019 PCR pending. IMAGING TESTS: Abdominal and pelvic CT scan was done, no gross abscess. There is swelling in the area of the right testicular scrotum. Doppler showed no torsion. Testicular ultrasound is still pending. IMPRESSION: 1. Right testicular and scrotal infection, cellulitis. 2. Recent right hydrocele repair on January 25, 2020. 3. Right scrotal pain and swelling. PLAN: Continue with IV antibiotic. The patient received IV vancomycin and Zosyn, which is appropriate. The patient is with diabetes type 2, insulin sliding scale coverage. Resume home medication. Blood pressure control. Consultation with Dr. Tramaine Medellin. Check testicular ultrasound when available. MD GEOVANNA Perez/MODL /[id number]
[2020-02-04 12:00] VITALS: BP 127/81
[2020-02-04 16:00] VITALS: BP 116/77
[2020-02-04 20:00] VITALS: BP 126/77
--- NOTE | 2020-02-04 20:45 | NUR ---
Received pt in bed awake, a/o x4. No c/o at this time, no s/sx of acute distress noted. Bed in low and locked position, call j[place]ston and personal items within reach. Bedside report completed, will cont to mon pt.
[2020-02-04] MEDS: ATORVASTATIN 10 MG TAB PO SCH (21:39)
[2020-02-05] VITALS (8 sets, daily range): BP systolic 117–139; BP diastolic 67–84
[2020-02-05] MEDS: PIPER-TAZ 3.375 GM 50 ML IV SCH ×3 (02:27→17:58)
[2020-02-05] MEDS: VANCOMYCIN 1GM/NS 250 ML 250 ML IV SCH (05:30)
[2020-02-05] MEDS: LISINOPRIL 2.5 MG TAB PO SCH ×2 (09:38→17:58)
[2020-02-05] MEDS: INSULIN LISPRO 100 UNIT/1 ML 3ML VIAL SQ SCH ×4 (09:48→21:22)
[2020-02-05] MEDS: ATORVASTATIN 10 MG TAB PO SCH (21:22)
[2020-02-06] VITALS: BP 145/81
[2020-02-06] MEDS: PIPER-TAZ 3.375 GM 50 ML IV SCH ×2 (01:12→09:30)
[2020-02-06 04:00] VITALS: BP 128/79
[2020-02-06 06:01] LABS: BASOPHILS # (AUTO) 0.1 (0.0-0.1); BASOPHILS % 0.7 % (0.0-1.0); EOSINOPHILS # (AUTO) 0.3 (0.0-0.4); EOSINOPHILS % 3.6 % (0.0-6.0); LYMPHOCYTES # (AUTO) 2.3 (1.0-3.2); LYMPHOCYTES % 27.4 % (18.0-39.1); MEAN CORPUSCULAR HGB CONC 35.3 g/dL (31-35); MEAN CORPUSCULAR VOLUME 96.3 fL (81-99); MONOCYTES # (AUTO) 0.6 (0.2-0.8); MONOCYTES % 6.7 % (4.4-11.3); NEUTROPHILS # (AUTO) 5.1 (2.1-6.9); NEUTROPHILS % 61.2 % (38.7-80.0); PLATELET COUNT 263 x10e3/uL (140-360); RED BLOOD COUNT 3.53 x10e6/uL (4.3-5.7); RED CELL DISTRIBUTION WIDTH 12.1 % (11.7-14.4)
[2020-02-06 06:25] LABS: ANION GAP 10.1 mmol/L (8-16); CALCIUM 8.9 mg/dL (8.4-10.2); CREATININE, SERUM 1.2 mg/dL (0.72-1.25); POTASSIUM 4.1 mmol/L (3.5-5.1)
[2020-02-06] MEDS ORDERED: VANCOMYCIN 1GM/NS 250 ML 250 ML IV SCH (07:00)
[2020-02-06 07:59] VITALS: BP 140/83
[2020-02-06] MEDS ORDERED: BACTRIM DS TAB1 EACH PO (09:20)
[2020-02-06] MEDS ORDERED: DOXYCYCLINE MO100 MG (09:21)
--- NOTE | 2020-02-06 09:25 | NUR ---
IMM EXPLAINED TO PT, SIGNED BY PT AND PLACED IN CHART COPY OF IMM GIVEN TO PT AND PLACED IN CARE TRANSITIONS FOLDER
[2020-02-06] MEDS: LISINOPRIL 2.5 MG TAB PO SCH (09:30)
[2020-02-06] MEDS: INSULIN LISPRO 100 UNIT/1 ML 3ML VIAL SQ SCH (09:30)
--- NOTE | 2020-02-06 10:48 | Discharge Summary ---
HUMAN RESOURCES COMPLIANCE MANAGER: Dr. Tramaine Medellin. FINAL DIAGNOSES: 1. Right scrotal cellulitis and right orchitis. 2. Status post recent right hydrocele repair, January 25, 2020. SUMMARY: The patient is a 69-year-old male, came in with right-sided scrotal swelling with redness and also hardness of the testis consistent with infection. On admission, the patient with leukocytosis 11.3 thousand. He is stable. He had a mild left shift. The patient was placed on antibiotics. He is doing well. The swelling has significantly diminished along with the redness as well. The tenderness has now much improved. The patient is ready to go home. Discharged home with Bactrim DS one tablet twice a day for 7 days and doxycycline 100 mg twice a day for 7 days. The patient will resume his home medication. He will follow up with Dr. Medellin in approximately 2 weeks. The patient is to follow up with his family physician within a week. Blood culture negative. Urine culture negative as well. The patient remained afebrile. DISCHARGE PLANNING: As above. FOLLOWUP: 1. With Dr. Medellin in 2 weeks. 2. With PCP in one week. DISCHARGE MEDICATIONS: Resume home med. DIET: Home diet. ACTIVITY: As tolerated. Sitz bath described to the patient if possible. MD GEOVANNA Perez/JIML /[id number]
== END 2020-02-06 11:39 | disposition home or self-care (01) | DRG 863 ==
LOC: ER 16:20 → ERHOLD 19:10 → MED/SURG 21:57
PROVIDERS: ADMIT Internal Medicine; ATTEND Internal Medicine
DX: T81.40XA Infection following a procedure, unspecified, initial encounter (principal); N49.2 Inflammatory disorders of scrotum; E11.9 Type 2 diabetes mellitus without complications; I10 Essential (primary) hypertension; E78.5 Hyperlipidemia, unspecified; N45.2 Orchitis; Z11.59 Encounter for screening for other viral diseases; D64.9 Anemia, unspecified; D72.829 Elevated white blood cell count, unspecified; N40.0 Benign prostatic hyperplasia without lower urinary tract symptoms; N52.9 Male erectile dysfunction, unspecified; Z79.84 Long term (current) use of oral hypoglycemic drugs
CPT/HCPCS: 36415; 74177; 76870; 80048; 80053; 80202; 81001; 82948; 83605; 85025; 87040; 87086; 93976; 99284; J0690; J2543; J3370; J7030; J7050; Q9967; U0002

== ENCOUNTER 2020-12-15 07:51 | Emergency (ER) | payer MEDICARE ==
[~2020-12-15] VITALS: Ht 172.7 cm; Wt 81.6 kg
[~2020-12-15 07:51] MED LIST changes: +ATORVASTATIN CA40 MG; +BACTRIM DS TAB1 EACH PO; +DOXYCYCLINE MO100 MG; +SULFAMETHOXAZOLE; +TRIAMCINOLONE A15 G3; +TRIMETHOPRIM; +TYLENOL # 31 EA
[2020-12-15 09:45] VITALS: BP 134/62
== END 2020-12-15 09:46 | disposition home or self-care (01) ==
LOC: ER 08:24
DX: R19.7 Diarrhea, unspecified (principal); I10 Essential (primary) hypertension; E11.9 Type 2 diabetes mellitus without complications; E78.5 Hyperlipidemia, unspecified
CPT/HCPCS: 99282

== ENCOUNTER 2021-03-01 09:54 | Emergency (ER) | payer MEDICARE ==
[~2021-03-01] VITALS: Ht 172.7 cm; Wt 74.8 kg
== END 2021-03-01 11:54 | disposition home or self-care (01) ==
LOC: ER 10:06
DX: R05.9 Cough, unspecified (principal); I10 Essential (primary) hypertension; E11.9 Type 2 diabetes mellitus without complications; E78.5 Hyperlipidemia, unspecified; Z20.822 Contact with and (suspected) exposure to COVID-19
CPT/HCPCS: 71045; 83518; 87070; 99282; U0002